=== PATIENT | female | born 1960 | race Caucasian/White ===

== ENCOUNTER 2018-06-13 16:00 | Outpatient (RCR) | payer OTHER, SELFPAY ==
--- NOTE | 2018-03-10 16:15 | PT.OTN ---
Current Diagnoses Pain in right shoulder (03/10/18) Transition note: On March 08, 2018 our therapy services consisting of Speech, Occupational, and Physical Therapy transitioned from the [employer] electronic documentation system to a new [employer] electronic documentation system.?? All documentation prior to March 08 can be found under [employer] saved data. From March 08 forward all medical record documentation will be in [employer] 6[facility]1.
--- NOTE | 2018-03-14 07:57 | PT.OTN ---
Current Diagnoses Pain in right shoulder (03/10/18) Physical Therapy Treatment Note PT-OP-A Visit Information Start: 03/10/18 17:10 Freq: Status: Active Protocol: Activity Type Activity Date Activity User E-Sign Co-Sign Detail Recorded Client Recorded Date Recorded By Document 03/10/18 17:11 EA [id number] 03/10/18 17:16 EA 03/10/18 17:11 Out-Patient Physical Therapy Visit Information [Visit Information] -Visit Type Treatment Note -Total Visit Minutes 55 PT-OP-C Subjective Start: 03/10/18 17:10 Freq: Status: Active Protocol: Activity Type Activity Date Activity User E-Sign Co-Sign Detail Recorded Client Recorded Date Recorded By Document 03/10/18 17:11 EA [id number] 03/10/18 17:16 EA 03/10/18 17:11 OP-PT Subjective [Patient Comments] -Patient Reported Progress Improving PT-OP-Q Treatments Start: 03/10/18 17:10 Freq: Status: Active Protocol: Activity Type Activity Date Activity User E-Sign Co-Sign Detail Recorded Client Recorded Date Recorded By Document 03/10/18 17:11 EA [id number] 03/10/18 17:16 EA 03/10/18 17:11 Cardio Equipment [Elliptical] -Duration (Minutes) 8 -Resistance 5 Gym Equipment [Cable Column (Body Solid)] Other- 2 -Details Lunge stance cable press -Resistance 10 lbs -Reps/Time 12 x 3 Other- 1 -Details Squat cable row Pain free range -Resistance 20-30lbs -Reps/Time 12 x 3 [Shuttle Recovery] Bilateral Squats -Resistance 3-6 cords -Shuttle Recovery Platform Stable -Reps/Time 15 x 6 [Therapeutic Ball] 1 -Exercise Details Supine lying DB trunk rotation -Reps/Duration 12 x 2 Therapeutic Exercises [Prone Exercises] 2 -Prone Exercise Name Yanelis pose to stretch towards left -Reps/Minutes 15 SH x 3 1 -Prone Exercise Name Quadro ped Unilat trunk/ shoulder in/out -Side bilateral -Reps/Minutes 15 x 3 [Sitting Exercises] 1 -Sitting Exercise Name Leg ext -Side bilateral -Resistance 5-8 lbs -Equipment Used AW -Reps/Minutes 15 x 3 -Comments pain free range [Standing Exercises] 2 -Standing Exercise Name Quads, hamstring and calfs flexibility stertch -Side bilateral -Reps/Minutes 15 SH x 2 1 -Standing Exercise Name Side step squat -Side bilateral -Comments Pain free range Manual Therapy Treatment [Soft Tissue Mobilization] 1 -Body Location Right scap borders, right paralumbars -Mobilization Type Myofascial Release Sustained Pressure -Intensity/Depth Moderate -Body Position Prone PT-OP-R Modalities Start: 03/10/18 17:10 Freq: Status: Active Protocol: Activity Type Activity Date Activity User E-Sign Co-Sign Detail Recorded Client Recorded Date Recorded By Document 03/10/18 17:11 EA [id number] 03/10/18 17:16 EA 03/10/18 17:11 Hot Pack/Cold Pack [Treatment] Cold Pack -Location both knees -Patient Position Supine -Patient Tolerance Good PT-OP-T Assessment and Plan Start: 03/10/18 17:10 Freq: Status: Active Protocol: Activity Type Activity Date Activity User E-Sign Co-Sign Detail Recorded Client Recorded Date Recorded By Document 03/10/18 17:11 AMANDA [id number] 03/10/18 17:16 EA 03/10/18 17:11 Physical Therapy Assessment [Goals] One -Impairment impaired half squat tolerance due to pain -LTG Duration Patient will exhibit 90 deg squat x 10 reps with no increase in pain [Progress Towards Goals] -Progress Towards Goals Slow Progress due to Activity Tolerance [Assessment Summary] -Assessment Patient is progressing slowly Physical Therapy Plan [Next Visit Focus/Plan] -Next Visit Plan Cont. with current plan
--- NOTE | 2018-03-14 10:01 | PT.OTN ---
Current Diagnoses Pain in right shoulder (03/14/18) Physical Therapy Treatment Note PT-OP-A Visit Information Start: 03/10/18 17:10 Freq: Status: Active Protocol: Activity Type Activity Date Activity User E-Sign Co-Sign Detail Recorded Client Recorded Date Recorded By Document 03/14/18 09:43 EA [id number] 03/14/18 09:59 EA 03/14/18 09:43 Out-Patient Physical Therapy Visit Information [Visit Information] -Visit Type Treatment Note -Total Visit Minutes 55 PT-OP-C Subjective Start: 03/10/18 17:10 Freq: Status: Active Protocol: Activity Type Activity Date Activity User E-Sign Co-Sign Detail Recorded Client Recorded Date Recorded By Document 03/14/18 09:43 EA [id number] 03/14/18 09:59 EA 03/14/18 09:43 OP-PT Subjective [Patient Comments] -Patient Comments Patient reports had a 2 days 4 hours tennis and feels shoulder and right low back is painful toaday; states right shoulder is getting better thouhg. PT-OP-Q Treatments Start: 03/10/18 17:10 Freq: Status: Active Protocol: Activity Type Activity Date Activity User E-Sign Co-Sign Detail Recorded Client Recorded Date Recorded By Document 03/14/18 09:43 EA [id number] 03/14/18 09:59 EA 03/14/18 09:43 Cardio Equipment [Elliptical] -Duration (Minutes) 6 -Resistance 5 Gym Equipment [Cable Column (Body Solid)] Other- 2 -Details Lunge stance cable press -Resistance 10 lbs -Reps/Time 12 x 3 Other- 1 -Details Squat cable row Pain free range -Resistance 20-30lbs -Reps/Time 12 x 3 [Shuttle Recovery] Bilateral Squats -Resistance 3-6 cords -Shuttle Recovery Platform Stable -Reps/Time 15 x 6 [Therapeutic Ball] 1 -Exercise Details Supine lying DB trunk rotation -Reps/Duration 12 x 2 Therapeutic Exercises [Prone Exercises] 2 -Prone Exercise Name Yanelis pose to stretch towards left -Reps/Minutes 15 SH x 3 1 -Prone Exercise Name Quadro ped Unilat trunk/ shoulder in/out -Side bilateral -Reps/Minutes 15 x 3 [Sitting Exercises] 1 -Sitting Exercise Name Leg ext -Side bilateral -Resistance 5-8 lbs -Equipment Used AW -Reps/Minutes 15 x 3 -Comments pain free range [Standing Exercises] 2 -Standing Exercise Name Quads, hamstring and calfs flexibility stertch -Side bilateral -Reps/Minutes 15 SH x 2 1 -Standing Exercise Name Side step squat -Side bilateral -Comments Pain free range Manual Therapy Treatment [Soft Tissue Mobilization] 1 -Body Location Right scap borders, right paralumbars -Mobilization Type Myofascial Release Sustained Pressure -Intensity/Depth Moderate -Body Position Prone PT-OP-R Modalities Start: 03/10/18 17:10 Freq: Status: Active Protocol: Activity Type Activity Date Activity User E-Sign Co-Sign Detail Recorded Client Recorded Date Recorded By Document 03/14/18 09:43 EA [id number] 03/14/18 09:59 EA 03/14/18 09:43 Electric Stimulation [Electric Stimulation] Interferential Current (IFC) -Body Location Paralumbars, parascapulars, R -Combined With Heat/Cold Hot Pack Hot Pack/Cold Pack [Treatment] Hot Pack -Location low back ans prascapulars -Treatment Duration (minutes) 15 Cold Pack -Location both knees -Patient Position Supine -Patient Tolerance Good PT-OP-T Assessment and Plan Start: 03/10/18 17:10 Freq: Status: Active Protocol: Activity Type Activity Date Activity User E-Sign Co-Sign Detail Recorded Client Recorded Date Recorded By Document 03/14/18 09:43 EA [id number] 03/14/18 09:59 EA 03/14/18 09:43 Physical Therapy Assessment [Goals] One -Impairment impaired half squat tolerance due to pain -LTG Duration Patient will exhibit 90 deg squat x 10 reps with no increase in pain [Progress Towards Goals] -Progress Towards Goals Slow Progress due to Activity Tolerance [Assessment Summary] -Assessment Patient tolerated treatment except with right shoulder/ trunk exercises w/ difficulty due to pain. Patient knees had less crepitus and pain. Physical Therapy Plan [Next Visit Focus/Plan] -Next Visit Plan Cont. with current plan
--- NOTE | 2018-03-16 17:41 | PT.OTN ---
Current Diagnoses Pain in right shoulder (03/16/18) Physical Therapy Treatment Note PT-OP-A Visit Information Start: 03/10/18 17:10 Freq: Status: Active Protocol: Document 03/16/18 17:35 EA (Rec: 03/16/18 17:40 EA [id number]) Out-Patient Physical Therapy Visit Information Visit Information Visit Type Treatment Note Total Visit Minutes 55 PT-OP-C Subjective Start: 03/10/18 17:10 Freq: Status: Active Protocol: Document 03/16/18 17:41 EA (Rec: 03/16/18 17:41 EA [id number]) OP-PT Subjective Patient Comments Patient Comments Played 2 hours tennis yesterday and no c/o knee pain during game. Patient Reported Progress Improving PT-OP-Q Treatments Start: 03/10/18 17:10 Freq: Status: Active Protocol: Document 03/16/18 17:35 EA (Rec: 03/16/18 17:40 EA [id number]) Gym Equipment Cable Column (Body Solid) Other- 2 Details Lunge stance cable press Resistance 10 lbs Reps/Time 12 x 3 Other- 1 Details Squat cable row Pain free range Resistance 20-30lbs Reps/Time 12 x 3 Shuttle Recovery Bilateral Squats Resistance 3-7 cords Shuttle Recovery Platform Stable Reps/Time 15 x 6 Therapeutic Exercises Prone Exercises 2 Prone Exercise Name Yanelis pose to stretch towards left Reps/Minutes 15 SH x 3 1 Prone Exercise Name Quadro ped Unilat trunk/ shoulder in/out Side bilateral Reps/Minutes 15 x 3 Sitting Exercises 1 Sitting Exercise Name Leg ext Side bilateral Resistance 5-10 lbs Equipment Used AW Reps/Minutes 15 x 3 Comments pain free range Standing Exercises 2 Standing Exercise Name Quads, hamstring and calfs flexibility stertch Side bilateral Reps/Minutes 15 SH x 2 1 Standing Exercise Name Side step squat Side bilateral Comments Pain free range PT-OP-R Modalities Start: 03/10/18 17:10 Freq: Status: Active Protocol: Document 03/16/18 17:35 EA (Rec: 03/16/18 17:40 EA [id number]) Electric Stimulation Electric Stimulation Interferential Current (IFC) Body Location Paralumbars, parascapulars, R Combined With Heat/Cold Hot Pack Hot Pack/Cold Pack Treatment Hot Pack Location low back ans prascapulars Treatment Duration (minutes) 15 Cold Pack Location both knees Patient Position Supine Patient Tolerance Good Ultrasound Therapy Treatment Right Lower Back Treatment Duration (minutes) 8 Frequency Setting (mHz) 1 Intensity Setting (w/cm2) 1.2 PT-OP-T Assessment and Plan Start: 03/10/18 17:10 Freq: Status: Active Protocol: Document 03/16/18 17:35 EA (Rec: 03/16/18 17:40 EA [id number]) Physical Therapy Assessment Assessment Summary Assessment Tolerated treatment well. No discomfort noted to both knees during exercises Physical Therapy Plan Next Visit Focus/Plan Next Visit Plan Advance as tolerated
--- NOTE | 2018-04-28 17:30 | PT.OPPOC ---
Current Diagnoses Pain in right shoulder (04/28/18) Pain in right knee (04/28/18) Provider Visit Care Team Role Provider Type Emerson Marin MD Family Provider Physician Primary Care Provider Specialty: [facility] Practice Address: [address] [place] [address], [id number] Email: [email or web address] [email or web address] Moore Attending Provider Advanced Practioner Clinician Specialty: [facility] Address: [address] [place] [address], [id number] Email: 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 LTG Duration 6 weeks Seven Impairment LE weakness Job Printer Apprentice Goal (LTG) 5/5 MMT bilaterally hip abduction, adduction, extension, flexion, IR, ER, and knee extension LTG Duration 6 weeks Six Impairment LE flexibility Job Printer Apprentice Goal (LTG) Full excursion of IT band and slight restriction or better of the rectus femoris bilaterally LTG Duration 6 weeks Five Impairment R shoulder ROM Job Printer Apprentice Goal (LTG) Apley's scratch test: R shoulder to T6 with IR combined. LTG Duration 6 weeks Four Impairment UE weakness Job Printer Apprentice Goal (LTG) 5/5 MMT without pain for shoulder flexion, IR, ER, abduction LTG Duration 6 weeks Three Impairment Impaired UE flexibility Fdc Goal (LTG) Full excursion of latissimus dorsi, levator, shoulder IRs, SCM, upper trapezius bilaterally LTG Duration 6 weeks Two Impairment Tenderness to palpation UE Fdc Goal (LTG) No tenderness to palpation in the UEs bilaterally LTG Duration 6 weeks One Impairment impaired half squat tolerance due to pain LTG Duration Patient will exhibit 90 deg squat x 10 reps with no increase in pain Progress Towards Goals Progress Towards Goals Progressing Toward Goals Slow Progress due to Activity Tolerance Progress Comments pt met Quick DASH disability score. Decreasing shoulder pain but still with low back pain with R shoulder elevation and with activity Assessment Summary Assessment Pt presents back to physical therapy (last seen Mar 16 2018) with improved bilateral knee and R shoulder pain, but high levels of pain in the lumbar region on the R side with shoulder elevation and with activities involved in RUE overhead motions (tennis). Pt' s low back pain likely due to impaired posture of the low back, as well as restrictions in lattissimus dorsi musculature, secondary to weakness of the R shoulder girdle musculature. Pt with decreased pain in low back with ultrasound therapy. Pt would greatly benefit from the continuation of skilled outpatient physical therapy to progress toward decreasing pain, improving strength and flexibility, and return to recreational activities (i.e. tennis) with minimal pain/ discomfort. Physical Therapy Plan Frequency and Duration Frequency of Treatment 2x/Week Duration of Treatment 6 weeks Plan of Care Start Date 04/28/18 Plan of Care End Date 06/09/18 Therapeutic Interventions Therapeutic Interventions Aquatic Therapy Home Exercise Program Joint Mobilizations Manual Therapy Neuromuscular Re-education Patient/Caregiver Education Self-Care/Home Management Soft Tissue Mobilization Taping Therapeutic Activities Therapeutic Exercises Modalities Cold Pack/Ice Massage Electric Stimulation Hot Packs Ultrasound Next Visit Focus/Plan Next Note Type Treatment Note Next Visit Plan ultrasound to R lumbar spine mm, 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 Plan of Care Dates Plan of Care Start Date 04/28/18 Plan of Care End Date 06/09/18 Please Sign and Return: I have reviewed this Plan of Care and certify that the skilled therapy services above are required to meet the patient?s needs. Physician Signature Date Printed Name and Credentials Clinical Instructor Signature Printed Name and Credentials
--- NOTE | 2018-04-28 17:30 | PT.OTN ---
Current Diagnoses Pain in right shoulder (04/28/18) Pain in right knee (04/28/18) Physical Therapy Treatment Note PT-OP-A Visit Information Start: 03/10/18 17:10 Freq: Status: Active Protocol: Document 04/28/18 17:30 RCC (Rec: 05/01/18 13:13 RCC [email or web address]) Out-Patient Physical Therapy Visit Information Visit Information Visit Type Treatment Note Visit Start Time 16:50 Visit Stop Time 17:30 Total Visit Minutes 40 Visit Number 20 Number of HOUSETRAILER SERVICER Visits 0 Evaluation Information Evaluation Date 12/14/17 PT-OP-B Current Condition Start: 03/10/18 17:10 Freq: Status: Active Protocol: Document 04/28/18 17:30 RCC (Rec: 05/01/18 13:13 RCC [email or web address]) Current Condition History of Current Condition Onset Date 12/01/17 Current Complaints R shoulder, B knee pain, low back pain R History of Current Condition Pt presented to physical therapy initially with R shoulder pain in December 2017 , with pain decreasing since initial injury but still painful. A new prescription for PT later in January of 2018 for bilateral knee pain. Pt also with c/o R sided low back pain with lifting of the R shoulder. Pt reporting that pain is limiting her ability to participate in recreational activities, including tennis. PT-OP-C Subjective Start: 03/10/18 17:10 Freq: Status: Active Protocol: Document 04/28/18 17:30 RCC (Rec: 05/01/18 13:13 RCC [email or web address]) OP-PT Subjective Patient Comments Patient Comments Pt reports her knees are improving, still some pain with stairs but able to play tennis without increased knee pain. Pt reports she still has pain with serving in her R shoulder, and increased pain into the R side of low back with overhead swinging in tennis. Pain 8/10 in low back, R shoulder 4/10. Patient Reported Progress Improving Patient Questionnaires Quick Dash- Upper Extremity Quick Dash UE Score 11.36 PT-OP-F Manual Assessment Start: 03/10/18 17:10 Freq: Status: Active Protocol: Document 04/28/18 17:30 RCC (Rec: 05/01/18 13:13 RCC [email or web address]) Manual Assessments Soft Tissue Assessment Soft Tissue Mobility Assessment Tenderness to palpation: R infraspinatus, levator, upper trap, latissimus dorsi, L3-5 lumbar paraspinals. PT-OP-M Strength Start: 03/10/18 17:10 Freq: Status: Active Protocol: Document 04/28/18 17:30 RCC (Rec: 05/01/18 13:13 [facility] [email or web address]) Shoulder Strength Shoulder Manual Muscle Testing Right Flexion 4+ Good+ Abduction (C5) 4+ Good+ External Rotation 4+ Good+ Internal Rotation 5 Normal Comments (+) pain R sided low back with resisted testing. Hip Strength Hip Manual Muscle Testing Left Flexion (L2) 5 Normal External Rotation 4+ Good+ Internal Rotation 4+ Good+ Right Flexion (L2) 4 Good External Rotation 3+ Fair+ Internal Rotation 4 Good Knee Strength Knee Manual Muscle Testing Right Flexion (S2) 4+ Good+ Extension (L3) 5 Normal Left Flexion (S2) 5 Normal Extension (L3) 5 Normal PT-OP-Q Treatments Start: 03/10/18 17:10 Freq: Status: Active Protocol: Document 04/28/18 17:30 RCC (Rec: 05/01/18 13:13 [facility] [email or web address]) Manual Therapy Treatment Soft Tissue Mobilization 3 Body Location R lumbar mm. L3-5 Mobilization Type Strumming Intensity/Depth Moderate Body Position Sidelying Comments 6 min 2 Body Location R infraspinatus, upper trap, lat Mobilization Type Myofascial Release Intensity/Depth Moderate Body Position Sitting Comments 8 min Other Other Manual Treatments UE & LE MMT, palpation 6 min Self-Care/Home Management Treatment Education Patient Education Body Mechanics Home Exercise Program Pain Management Posture Other Education discussed above topics in static and dynamic activities, stretching techniques for lat. PT-OP-R Modalities Start: 03/10/18 17:10 Freq: Status: Active Protocol: Document 04/28/18 17:30 RCC (Rec: 05/01/18 13:13 [facility] [email or web address]) Ultrasound Therapy Treatment Right Lower Back Treatment Duration (minutes) 8 Frequency Setting (mHz) 1 Intensity Setting (w/cm2) 1.2 PT-OP-T Assessment and Plan Start: 03/10/18 17:10 Freq: Status: Active Protocol: Document 04/28/18 17:30 RCC (Rec: 05/01/18 13:13 [facility] [email or web address]) Physical Therapy Assessment Impairments Impairments Activity Tolerance Pain Posture Soft Tissue Mobility Strength Goals Nine Impairment Quick DASH disability score Senior Economist Goal (LTG) Goal met: 11.36 (goal was <20) Eight Impairment R shoulder and low back pain Short Term Goal (STG) 3/10 R shoulder, 5/10 low back STG Duration 3 weeks Half-Way Goal (LTG) 2/10 or less R shoulder, 3/10 or less low back. LTG Duration 6 weeks Seven Impairment LE weakness Senior Economist Goal (LTG) 5/5 MMT bilaterally hip abduction, adduction, extension, flexion, IR, ER, and knee extension LTG Duration 6 weeks Six Impairment LE flexibility Half-Way Goal (LTG) Full excursion of IT band and slight restriction or better of the rectus femoris bilaterally LTG Duration 6 weeks Five Impairment R shoulder ROM Half-Way Goal (LTG) Apley's scratch test: R shoulder to T6 with IR combined. LTG Duration 6 weeks Four Impairment UE weakness Senior Economist Goal (LTG) 5/5 MMT without pain for shoulder flexion, IR, ER, abduction LTG Duration 6 weeks Three Impairment Impaired UE flexibility Half-Way Goal (LTG) Full excursion of latissimus dorsi, levator, shoulder IRs, SCM, upper trapezius bilaterally LTG Duration 6 weeks Two Impairment Tenderness to palpation UE Senior Economist Goal (LTG) No tenderness to palpation in the UEs bilaterally LTG Duration 6 weeks One Impairment impaired half squat tolerance due to pain LTG Duration Patient will exhibit 90 deg squat x 10 reps with no increase in pain Progress Towards Goals Progress Towards Goals Progressing Toward Goals Slow Progress due to Activity Tolerance Progress Comments pt met Quick DASH disability score. Decreasing shoulder pain but still with low back pain with R shoulder elevation and with activity Assessment Summary Assessment Pt presents back to physical therapy (last seen Mar 16 2018) with improved bilateral knee and R shoulder pain, but high levels of pain in the lumbar region on the R side with shoulder elevation and with activities involved in RUE overhead motions (tennis). Pt' s low back pain likely due to impaired posture of the low back, as well as restrictions in lattissimus dorsi musculature, secondary to weakness of the R shoulder girdle musculature. Pt with decreased pain in low back with ultrasound therapy. Pt would greatly benefit from the continuation of skilled outpatient physical therapy to progress toward decreasing pain, improving strength and flexibility, and return to recreational activities (i.e. tennis) with minimal pain/ discomfort. Physical Therapy Plan Frequency and Duration Frequency of Treatment 2x/Week Duration of Treatment 6 weeks Plan of Care Start Date 04/28/18 Plan of Care End Date 06/09/18 Therapeutic Interventions Therapeutic Interventions Aquatic Therapy Home Exercise Program Joint Mobilizations Manual Therapy Neuromuscular Re-education Patient/Caregiver Education Self-Care/Home Management Soft Tissue Mobilization Taping Therapeutic Activities Therapeutic Exercises Modalities Cold Pack/Ice Massage Electric Stimulation Hot Packs Ultrasound Next Visit Focus/Plan Next Note Type Treatment Note Next Visit Plan ultrasound to R lumbar spine mm, body component 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
--- NOTE | 2018-05-26 07:22 | PT.OTN ---
Current Diagnoses Pain in right shoulder (05/25/18) Physical Therapy Treatment Note PT-OP-A Visit Information Start: 03/10/18 17:10 Freq: Status: Active Protocol: Document 05/25/18 17:25 EA (Rec: 05/25/18 17:33 EA [id number]) Out-Patient Physical Therapy Visit Information Visit Information Visit Type Treatment Note Visit Start Time 16:00 Visit Stop Time 16:50 Total Visit Minutes 50 Visit Number 21 Number of CHARGING BOARD OPERATOR Visits 0 PT-OP-B Current Condition Start: 03/10/18 17:10 Freq: Status: Active Protocol: Document 04/28/18 17:30 RCC (Rec: 05/01/18 13:13 RCC [id number]) Current Condition History of Current Condition Onset Date 12/01/17 Current Complaints R shoulder, B knee pain, low back pain R History of Current Condition Pt presented to physical therapy initially with R shoulder pain in December 2017 , with pain decreasing since initial injury but still painful. A new prescription for PT later in January of 2018 for bilateral knee pain. Pt also with c/o R sided low back pain with lifting of the R shoulder. Pt reporting that pain is limiting her ability to participate in recreational activities, including tennis. PT-OP-C Subjective Start: 03/10/18 17:10 Freq: Status: Active Protocol: Document 05/25/18 17:25 EA (Rec: 05/25/18 17:33 EA [id number]) OP-PT Subjective Patient Comments Patient Comments Patient reports left hip is bothering her a lot and knees are doing great; states she will see otho surgeon next week for her knees Patient Reported Progress Improving PT-OP-F Manual Assessment Start: 03/10/18 17:10 Freq: Status: Active Protocol: Document 04/28/18 17:30 RCC (Rec: 05/01/18 13:13 RCC [email or web address]) Manual Assessments Soft Tissue Assessment Soft Tissue Mobility Assessment Tenderness to palpation: R infraspinatus, levator, upper trap, latissimus dorsi, L3-5 lumbar paraspinals. PT-OP-M Strength Start: 03/10/18 17:10 Freq: Status: Active Protocol: Document 04/28/18 17:30 RCC (Rec: 05/01/18 13:13 RCC [email or web address]) Shoulder Strength Shoulder Manual Muscle Testing Right Flexion 4+ Good+ Abduction (C5) 4+ Good+ External Rotation 4+ Good+ Internal Rotation 5 Normal Comments (+) pain R sided low back with resisted testing. Hip Strength Hip Manual Muscle Testing Left Flexion (L2) 5 Normal External Rotation 4+ Good+ Internal Rotation 4+ Good+ Right Flexion (L2) 4 Good External Rotation 3+ Fair+ Internal Rotation 4 Good Knee Strength Knee Manual Muscle Testing Right Flexion (S2) 4+ Good+ Extension (L3) 5 Normal Left Flexion (S2) 5 Normal Extension (L3) 5 Normal PT-OP-Q Treatments Start: 03/10/18 17:10 Freq: Status: Active Protocol: Document 05/25/18 17:25 EA (Rec: 05/25/18 17:33 EA [id number]) Cardio Equipment Elliptical Duration (Minutes) 6 Resistance 5 Gym Equipment Shuttle Recovery Bilateral Squats Resistance 3-5 cords Shuttle Recovery Platform Stable Reps/Time 15 x 6 Therapeutic Ball 1 Exercise Details Supine lying DB trunk rotation Reps/Duration 12 x 2 Therapeutic Exercises Prone Exercises 2 Prone Exercise Name Yanelis pose to stretch towards left Reps/Minutes 15 SH x 3 1 Prone Exercise Name Quadro ped Unilat trunk/ shoulder in/out Side bilateral Reps/Minutes 15 x 3 Sitting Exercises 1 Sitting Exercise Name Leg ext Side bilateral Resistance 5 lbs Equipment Used AW Reps/Minutes 15 x 3 Comments pain free range Standing Exercises 2 Standing Exercise Name Quads, hamstring and calfs flexibility stertch Side bilateral Reps/Minutes 15 SH x 2 Manual Therapy Treatment Soft Tissue Mobilization 3 Body Location R lumbar and hip flexors mm. L3-5 Mobilization Type Cross-Friction Sustained Pressure Intensity/Depth Moderate Body Position supine/prone Comments 15 mins PT-OP-R Modalities Start: 03/10/18 17:10 Freq: Status: Active Protocol: Document 05/25/18 17:25 EA (Rec: 05/25/18 17:33 EA [id number]) Electric Stimulation Electric Stimulation Interferential Current (IFC) Body Location right ant hip and ASIS Combined With Heat/Cold Cold Pack Hot Pack/Cold Pack Treatment Cold Pack Location both knees Patient Position Supine Patient Tolerance Good PT-OP-T Assessment and Plan Start: 03/10/18 17:10 Freq: Status: Active Protocol: Document 05/25/18 17:25 EA (Rec: 05/25/18 17:33 EA [id number]) Physical Therapy Assessment Assessment Summary Assessment Tolerated treatment well; exhibit ant left hip flexor strain. educated with pre- cautions and HEP. Physical Therapy Plan Next Visit Focus/Plan Next Note Type Treatment Note Next Visit Plan cont. with current program.
--- NOTE | 2018-05-31 13:55 | PT.OTN ---
Current Diagnoses Pain in right shoulder (05/31/18) Physical Therapy Treatment Note PT-OP-A Visit Information Start: 03/10/18 17:10 Freq: Status: Active Protocol: Document 05/31/18 10:30 EA (Rec: 05/31/18 13:54 EA [id number]) Out-Patient Physical Therapy Visit Information Visit Information Visit Start Time 08:15 Visit Stop Time 09:00 Total Visit Minutes 50 Visit Number 22 Number of DISTRICT OPERATIONS MANAGER Visits 0 PT-OP-B Current Condition Start: 03/10/18 17:10 Freq: Status: Active Protocol: Document 04/28/18 17:30 RCC (Rec: 05/01/18 13:13 RCC [email or web address]) Current Condition History of Current Condition Onset Date 12/01/17 Current Complaints R shoulder, B knee pain, low back pain R History of Current Condition Pt presented to physical therapy initially with R shoulder pain in December 2017 , with pain decreasing since initial injury but still painful. A new prescription for PT later in January of 2018 for bilateral knee pain. Pt also with c/o R sided low back pain with lifting of the R shoulder. Pt reporting that pain is limiting her ability to participate in recreational activities, including tennis. PT-OP-C Subjective Start: 03/10/18 17:10 Freq: Status: Active Protocol: Document 05/31/18 10:30 EA (Rec: 05/31/18 13:54 EA [id number]) OP-PT Subjective Patient Comments Patient Comments Pt reports right low back is quite hurting in the past few days after playing tennis; states complaint with pre-and post game exercises. PT-OP-F Manual Assessment Start: 03/10/18 17:10 Freq: Status: Active Protocol: Document 04/28/18 17:30 RCC (Rec: 05/01/18 13:13 RCC [email or web address]) Manual Assessments Soft Tissue Assessment Soft Tissue Mobility Assessment Tenderness to palpation: R infraspinatus, levator, upper trap, latissimus dorsi, L3-5 lumbar paraspinals. PT-OP-M Strength Start: 03/10/18 17:10 Freq: Status: Active Protocol: Document 04/28/18 17:30 RCC (Rec: 05/01/18 13:13 RCC [email or web address]) Shoulder Strength Shoulder Manual Muscle Testing Right Flexion 4+ Good+ Abduction (C5) 4+ Good+ External Rotation 4+ Good+ Internal Rotation 5 Normal Comments (+) pain R sided low back with resisted testing. Hip Strength Hip Manual Muscle Testing Left Flexion (L2) 5 Normal External Rotation 4+ Good+ Internal Rotation 4+ Good+ Right Flexion (L2) 4 Good External Rotation 3+ Fair+ Internal Rotation 4 Good Knee Strength Knee Manual Muscle Testing Right Flexion (S2) 4+ Good+ Extension (L3) 5 Normal Left Flexion (S2) 5 Normal Extension (L3) 5 Normal PT-OP-Q Treatments Start: 03/10/18 17:10 Freq: Status: Active Protocol: Document 05/31/18 10:30 EA (Rec: 05/31/18 13:54 EA [id number]) Cardio Equipment Elliptical Duration (Minutes) 6 Resistance 5 Gym Equipment Shuttle Recovery Bilateral Squats Resistance 3-5 cords Shuttle Recovery Platform Stable Reps/Time 15 x 6 Therapeutic Ball 1 Exercise Details Supine lying DB trunk rotation Reps/Duration 12 x 2 Therapeutic Exercises Prone Exercises 3 Prone Exercise Name Camel and cat Reps/Minutes x 5 reps x 2 sets x 5 SH in cats position 2 Prone Exercise Name Yanelis pose to stretch towards left Reps/Minutes 15 SH x 3 1 Prone Exercise Name Quadro ped Unilat trunk/ shoulder in/out Side bilateral Reps/Minutes 15 x 3 Sitting Exercises 1 Sitting Exercise Name Leg ext Side bilateral Resistance 5-12.5 lbs Equipment Used AW Reps/Minutes 15 x 3 Comments pain free range Standing Exercises 2 Standing Exercise Name Quads, hamstring and calfs flexibility stertch Side bilateral Reps/Minutes 15 SH x 2 Manual Therapy Treatment Soft Tissue Mobilization 3 Body Location R parlumbars Mobilization Type Cross-Friction Sustained Pressure Intensity/Depth Moderate Body Position supine/prone Comments 15 mins PT-OP-R Modalities Start: 03/10/18 17:10 Freq: Status: Active Protocol: Document 05/31/18 10:30 EA (Rec: 05/31/18 13:54 EA [id number]) Electric Stimulation Electric Stimulation Interferential Current (IFC) Body Location right ant hip and ASIS Combined With Heat/Cold Cold Pack Ultrasound Therapy Treatment Right Lower Back Treatment Duration (minutes) 5 Frequency Setting (mHz) 1 Intensity Setting (w/cm2) 1.5 PT-OP-T Assessment and Plan Start: 03/10/18 17:10 Freq: Status: Active Protocol: Document 05/31/18 10:30 EA (Rec: 05/31/18 13:54 EA [id number]) Physical Therapy Assessment Assessment Summary Assessment Tolerated treatment well with decreased back stiffness after treatment. Physical Therapy Plan Next Visit Focus/Plan Next Note Type Treatment Note Next Visit Plan cont. with current program.
--- NOTE | 2018-06-23 15:51 | PT.OTN ---
Current Diagnoses Pain in right shoulder (06/13/18) Physical Therapy Treatment Note PT-OP-A Visit Information Start: 03/10/18 17:10 Freq: Status: Active Protocol: Document 06/13/18 17:00 EA (Rec: 06/14/18 07:25 EA [id number]) Out-Patient Physical Therapy Visit Information Visit Information Visit Type Treatment Note Visit Note Re-evaluation performed to this date. Visit Start Time 16:00 Visit Stop Time 16:40 Total Visit Minutes 40 Visit Number 23 PT-OP-B Current Condition Start: 03/10/18 17:10 Freq: Status: Active Protocol: Document 06/13/18 17:20 EA (Rec: 06/23/18 15:28 EA [id number]) Current Condition History of Current Condition Onset Date 12/01/17 Current Complaints R shoulder, B knee pain, low back pain R History of Current Condition Pt presented to physical therapy initially with R shoulder pain in December 2017 , with pain decreasing since initial injury but still painful. A new prescription for PT later in January of 2018 for bilateral knee pain. Pt also with c/o R sided low back pain with lifting of the R shoulder. Pt reporting that pain is limiting her ability to participate in recreational activities, including tennis. PT-OP-C Subjective Start: 03/10/18 17:10 Freq: Status: Active Protocol: Document 06/13/18 17:00 EA (Rec: 06/14/18 07:25 EA [id number]) OP-PT Subjective Patient Comments Patient Comments Patient reports that she has been consistent with her home exercises program; states low back pain is not bothering much and cold pack is helping it. Patient states knees feels improving as well but she still willing to progress more . Patient Reported Progress Improving Patient Questionnaires Lower Extremity Functional Scale LEFS Impairment 20 to 39% Impaired (Score 48- 62) PT-OP-F Manual Assessment Start: 03/10/18 17:10 Freq: Status: Active Protocol: Document 06/13/18 17:20 EA (Rec: 06/23/18 15:28 EA [id number]) Manual Assessments Soft Tissue Assessment Soft Tissue Mobility Assessment Slight tenderness to palpation : R infraspinatus, levator, upper trap, latissimus dorsi, L3-5 lumbar paraspinals. Joint Mobility Assessment Joint Mobility Assessment Crepitus to both patellofemoral joint PT-OP-J Posture/Palpation/Skin Start: 03/10/18 17:10 Freq: Status: Active Protocol: Document 06/13/18 17:20 EA (Rec: 06/23/18 15:36 EA [id number]) Posture Evaluation Position Standing L-Spine Posture Increased Lordosis Patellar Posture (L) Laterally Tilted (R) Laterally Tilted Foot Arch (L) Low Arch (R) Low Arch Palpation Assessment Location One Palpation Location Right paralumbars Palpation Findings Soft Tissue Tightness Tenderness PT-OP-K Range of Motion Start: 03/10/18 17:10 Freq: Status: Active Protocol: Document 06/13/18 17:20 EA (Rec: 06/23/18 15:30 EA [id number]) Lumbar Spine Range of Motion Lumbar Spine Active Testing Position Sitting Flexion 45 Extension 40 Rotation Left 35 Rotation Right 40 Lateral Flexion Left 25 Lateral Flexion Right 35 ROM Limitations Soft Tissue Tightness Pain Knee Goniometric Range of Motion Knee Measured in Degrees Left Knee ROM WFL Yes Right Knee ROM WFL Yes PT-OP-L Special Tests Start: 03/10/18 17:10 Freq: Status: Active Protocol: Document 06/13/18 15:20 EA (Rec: 06/23/18 15:34 EA [id number]) Special Tests Lumbar Spine Special Tests Other- 1 Test Results Sensitive Comments Lumbar facet's joint test's increase pain. Knee Special Tests Michael's Sign Test Results positive both knees Comments Suggest patellofemoral joint affectation. PT-OP-M Strength Start: 03/10/18 17:10 Freq: Status: Active Protocol: Document 06/13/18 17:00 EA (Rec: 06/23/18 14:31 EA [id number]) Shoulder Strength Shoulder Manual Muscle Testing Right Flexion 4+ Good+ Abduction (C5) 4+ Good+ External Rotation 4+ Good+ Internal Rotation 5 Normal Comments (+) pain R sided low back with resisted testing. PT-OP-Q Treatments Start: 03/10/18 17:10 Freq: Status: Active Protocol: Document 06/13/18 17:00 EA (Rec: 06/23/18 14:31 EA [id number]) Cardio Equipment Elliptical Duration (Minutes) 6 Resistance 5 Gym Equipment Shuttle Recovery Bilateral Squats Resistance 3-6 cords Shuttle Recovery Platform Stable Reps/Time 15 x 6 Therapeutic Exercises Prone Exercises 3 Prone Exercise Name Camel and cat Reps/Minutes x 5 reps x 2 sets x 5 SH in cats position 2 Prone Exercise Name Yanelis pose to stretch towards left Reps/Minutes 15 SH x 3 1 Prone Exercise Name Quadro ped Unilat trunk/ shoulder in/out Side bilateral Reps/Minutes 15 x 3 Sitting Exercises 1 Sitting Exercise Name Leg ext Side bilateral Resistance 5-12.5 lbs Equipment Used AW Reps/Minutes 15 x 3 Comments home program Standing Exercises 2 Standing Exercise Name Quads, hamstring and calfs flexibility stertch Side bilateral Reps/Minutes 15 SH x 2 Comments home program 1 Standing Exercise Name Side step squat Side bilateral Comments home program Self-Care/Home Management Treatment Education Patient Education Body Mechanics Home Exercise Program Pain Management Posture Other Education discussed above topics in static and dynamic activities, stretching techniques for lat. PT-OP-R Modalities Start: 03/10/18 17:10 Freq: Status: Active Protocol: Document 06/13/18 17:20 EA (Rec: 06/23/18 15:28 EA [id number]) Hot Pack/Cold Pack Treatment Hot Pack Location low back ans prascapulars Treatment Duration (minutes) 15 Cold Pack Location both knees Patient Position Supine Patient Tolerance Good Ultrasound Therapy Treatment Right Lower Back Treatment Duration (minutes) 5 Frequency Setting (mHz) 1 Intensity Setting (w/cm2) 1.5 PT-OP-T Assessment and Plan Start: 03/10/18 17:10 Freq: Status: Active Protocol: Document 06/13/18 17:00 EA (Rec: 06/23/18 14:31 EA [id number]) Physical Therapy Assessment Goals Ten Impairment Unable to perform Steady full lunges Nursing Home Goal (LTG) Patient will perform full lunges with single hand support. LTG Duration 6 wks Nine Impairment Quick DASH disability score Digital Controls Technical Officer Goal (LTG) Goal met: 11.36 (goal was <20) Eight Impairment low back pain rated 5/10 STG Duration 3 weeks Nursing Home Goal (LTG) 2/10 or less low back. LTG Duration goal met Seven Impairment LE weakness Digital Controls Technical Officer Goal (LTG) 5/5 MMT bilaterally hip abduction, adduction, extension, flexion, IR, ER, and knee extension LTG Duration 6 weeks Six Impairment LE flexibility Nursing Home Goal (LTG) Full excursion of IT band and slight restriction or better of the rectus femoris bilaterally LTG Duration 6 weeks One Impairment impaired half squat tolerance due to pain LTG Duration Patient will exhibit 90 deg squat x 10 reps with no increase in pain Progress Towards Goals Progress Towards Goals Progressing Toward Goals Slow Progress due to Activity Tolerance Progress Comments Low back pain is gradually improving in terms of frequency Assessment Summary Assessment Patient was only seen 3 times since the last re-evaluation. Patient has been compliant with HEP and she has been consistent playing tennis and aware with body mechanics and pre-cautions. Overall patient is slowly progressing in terms of shoulder and low back pain . 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 Patient has a tendency to overworked upper body and lower back during tennis. At this point, i am inforcing to strengthening both LE's to prevent the recurrence of low back and shoulder pain. In my opinion patient will cont . to benefit with skilled PT to address the aforementioned issues. Physical Therapy Plan Frequency and Duration Frequency of Treatment 1x/Week Plan of Care Start Date 06/13/18 Plan of Care End Date 07/25/18 Therapeutic Interventions Therapeutic Interventions Home Exercise Program Joint Mobilizations Manual Therapy Self-Care/Home Management Soft Tissue Mobilization Therapeutic Exercises Next Visit Focus/Plan Next Note Type Treatment Note Next Visit Plan LE's strengthening.
--- NOTE | 2018-06-23 15:52 | PT.OPPOC ---
Current Diagnoses Pain in right shoulder (06/13/18) Provider Visit Care Team Role Provider Type Emerson Marin MD Family Provider Physician Primary Care Provider Specialty: [facility] Address: [address] [place] [address], [id number] Email: [email or web address] MURALI Moore Attending Provider Advanced Laborer/Key Man Specialty: [facility] Address: [address] [place] [address], [id number] Email: [email or web address] Plan Of Care PT-OP-T Assessment and Plan Start: 03/10/18 17:10 Freq: Status: Active Protocol: Document 06/13/18 17:00 EA (Rec: 06/23/18 14:31 EA [id number]) Physical Therapy Assessment Goals Ten Impairment Unable to perform Steady full lunges Stewardess Supervisor Goal (LTG) Patient will perform full lunges with single hand support. LTG Duration 6 wks Nine Impairment Quick DASH disability score Detention Goal (LTG) Goal met: 11.36 (goal was <20) Eight Impairment low back pain rated 5/10 STG Duration 3 weeks Stewardess Supervisor Goal (LTG) 2/10 or less low back. LTG Duration goal met Seven Impairment LE weakness Detention Goal (LTG) 5/5 MMT bilaterally hip abduction, adduction, extension, flexion, IR, ER, and knee extension LTG Duration 6 weeks Six Impairment LE flexibility Detention Goal (LTG) Full excursion of IT band and slight restriction or better of the rectus femoris bilaterally LTG Duration 6 weeks One Impairment impaired half squat tolerance due to pain LTG Duration Patient will exhibit 90 deg squat x 10 reps with no increase in pain Progress Towards Goals Progress Towards Goals Progressing Toward Goals Slow Progress due to Activity Tolerance Progress Comments Low back pain is gradually improving in terms of frequency Assessment Summary Assessment Patient was only seen 3 times since the last re-evaluation. Patient has been compliant with HEP and she has been consistent playing tennis and aware with body mechanics and pre-cautions. Overall patient is slowly progressing in terms of shoulder and low back pain . 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 Patient has a tendency to overworked upper body and lower back during tennis. At this point, i am in forcing to strengthening both LE's to prevent the recurrence of low back and shoulder pain. In my opinion patient will cont . to benefit with skilled PT to address the aforementioned issues. Physical Therapy Plan Frequency and Duration Frequency of Treatment 1x/Week Plan of Care Start Date 06/13/18 Plan of Care End Date 07/25/18 Therapeutic Interventions Therapeutic Interventions Home Exercise Program Joint Mobilizations Manual Therapy Self-Care/Home Management Soft Tissue Mobilization Therapeutic Exercises Next Visit Focus/Plan Next Note Type Treatment Note Next Visit Plan LE's strengthening. Plan of Care Dates Plan of Care Start Date 06/13/18 Plan of Care End Date 07/25/18 Please Sign and Return: I have reviewed this Plan of Care and certify that the skilled therapy services above are required to meet the patient?s needs. Physician Signature Date Printed Name and Credentials Clinical Instructor Signature Printed Name and Credentials
--- NOTE | 2019-05-30 12:52 | PT.OPDS ---
Current Diagnoses Pain in right shoulder (06/13/18) Provider Visit Care Team Role Provider Type Emerson Marin MD Family Provider Physician Primary Care Provider Specialty: Family Practice Address: [address] [place] [address], [id number] Email: [email or web address] Attending Provider Advanced Second Facing Baster Specialty: [facility] Practice Address: [address] [place] [address], [place], [address] Email: [email or web address] Visit Number Visit Number 23 Discharge Summary PT-OP-B Current Condition Start: 03/10/18 17:10 Freq: Status: Active Protocol: Document 06/13/18 17:20 EA (Rec: 06/23/18 15:28 EA [id number]) Current Condition History of Current Condition Onset Date 12/01/17 Current Complaints R shoulder, B knee pain, low back pain R History of Current Condition Pt presented to physical therapy initially with R shoulder pain in December 2017 , with pain decreasing since initial injury but still painful. A new prescription for PT later in January of 2018 for bilateral knee pain. Pt also with c/o R sided low back pain with lifting of the R shoulder. Pt reporting that pain is limiting her ability to participate in recreational activities, including tennis. PT-OP-C Subjective Start: 03/10/18 17:10 Freq: Status: Active Protocol: Document 05/30/19 12:50 EA (Rec: 05/30/19 12:52 EA [id number]) OP-PT Subjective Patient Comments Patient Comments Phone made and requested to keep file open on 11/09/18. She mentioned that she will call back after weeks to comeback to PT. She is aware that she required doctor's referral is she wishes to comeback. PT-OP-F Manual Assessment Start: 03/10/18 17:10 Freq: Status: Active Protocol: Document 06/13/18 17:20 EA (Rec: 06/23/18 15:28 EA [id number]) Manual Assessments Soft Tissue Assessment Soft Tissue Mobility Assessment Slight tenderness to palpation : R infraspinatus, levator, upper trap, latissimus dorsi, L3-5 lumbar paraspinals. Joint Mobility Assessment Joint Mobility Assessment Crepitus to both patellofemoral joint PT-OP-J Posture/Palpation/Skin Start: 03/10/18 17:10 Freq: Status: Active Protocol: Document 06/13/18 17:20 EA (Rec: 06/23/18 15:36 EA [id number]) Posture Evaluation Position Standing L-Spine Posture Increased Lordosis Patellar Posture (L) Laterally Tilted (R) Laterally Tilted Foot Arch (L) Low Arch (R) Low Arch Palpation Assessment Location One Palpation Location Right paralumbars Palpation Findings Soft Tissue Tightness Tenderness PT-OP-K Range of Motion Start: 03/10/18 17:10 Freq: Status: Active Protocol: Document 06/13/18 17:20 EA (Rec: 06/23/18 15:30 EA [id number]) Lumbar Spine Range of Motion Lumbar Spine Active Testing Position Sitting Flexion 45 Extension 40 Rotation Left 35 Rotation Right 40 Lateral Flexion Left 25 Lateral Flexion Right 35 ROM Limitations Soft Tissue Tightness Pain Knee Goniometric Range of Motion Knee Left Knee ROM WFL Yes Right Knee ROM WFL Yes PT-OP-L Special Tests Start: 03/10/18 17:10 Freq: Status: Active Protocol: Document 06/13/18 15:20 EA (Rec: 06/23/18 15:34 EA [id number]) Special Tests Lumbar Spine Special Tests Other- 1 Test Results Sensitive Comments Lumbar facet's joint test's increase pain. Knee Special Tests Michael's Sign Test Results positive both knees Comments Suggest patellofemoral joint affectation. PT-OP-M Strength Start: 03/10/18 17:10 Freq: Status: Active Protocol: Document 06/13/18 17:00 EA (Rec: 06/23/18 14:31 EA [id number]) Shoulder Strength Shoulder Manual Muscle Testing Right Flexion 4+ Good+ Abduction (C5) 4+ Good+ External Rotation 4+ Good+ Internal Rotation 5 Normal Comments (+) pain R sided low back with resisted testing. PT-OP-T Assessment and Plan Start: 03/10/18 17:10 Freq: Status: Active Protocol: Document 05/30/19 12:50 EA (Rec: 05/30/19 12:52 EA [id number]) Physical Therapy Assessment Assessment Summary Assessment Patient is discharge to PT today after no call received since six month ago up to today's date. Physical Therapy Plan Discharge Physical Therapy Discharge Reasons No Longer Attending PT
== END 2019-06-01 14:00 | disposition home or self-care (01) ==
LOC: PHYS 16:00
PROVIDERS: Family Provider Family Medicine; PCP Family Medicine; Visit Provider Internal Medicine
DX: M25.511 Pain in right shoulder (principal)
CPT/HCPCS: 97010; 97014; 97035; 97110; 97140; 97535; G0283

== ENCOUNTER → 2018-08-03 08:03 | Outpatient (CLI) | payer OTHER, SELFPAY ==
[2018-08-03 09:02] LABS: Add Manual Diff / Slide Review NO; Basophils Percent Auto 0.7 % (0-2); Eosinophils Percent Auto 5.9 % (2-4); Hematocrit 40.7 % (36-46); Hemoglobin 14.1 g/dL (12.0-16.0); Lymphocytes Percent Auto 35.9 % (25-40); Mean Corpuscular HGB Conc 34.6 % (30-36); Mean Corpuscular Hemoglobin 28.5 PG (26-34); Mean Corpuscular Volume 82.3 fL (80-100); Monocytes Percent Auto 8.3 % (3-14); Neutrophils Absolute Auto 3600 /uL (3000-5900); Neutrophils Percent Auto 49.2 % (50-75); Platelet Count 274 X10^3/uL (150-400); Red Blood Cell Count 4.94 X10^6/uL (4.0-5.2); Red Cell Distribution Width 13.9 % (11.6-14.8); White Blood Cell Count 7.3 X10^3/uL (4.5-11.0)
[2018-08-03 09:37] LABS: Alanine Aminotransferase 22 IU/L (9-52); Albumin 4.3 g/dL (3.5-5.0); Albumin Globulin Ratio 1.7 (1.0-2.8); Alkaline Phosphatase 57 U/L (38-126); Aspartate Aminotransferase 21 IU/L (14-36); BUN Creatinine Ratio 28.6 (6-22); Bilirubin Total 0.6 mg/dL (0.2-1.3); Blood Urea Nitrogen 20 mg/dL (7-17); Calcium 9.2 mg/dL (8.4-10.2); Carbon Dioxide 30 mmol/L (22-32); Chloride 104 mmol/L (98-107); Cholesterol 225 mg/dL (140-199); Estimated Glomerular Filt Rate > 60.0 mL/min (>60); Globulin 2.6 g/dL (1.7-4.1); Glucose 94 mg/dL (70-100); HDL Cholesterol 99 mg/dL (40-60); HEMOLYSIS < 15 (0-50); LDL Cholesterol Calculated 115 mg/dL (<100); Potassium 4.1 mmol/L (3.4-5.1); Sodium 143 mmol/L (137-145); Total Protein 6.9 g/dL (6.3-8.2); Triglycerides 53 mg/dL (35-150)
[2018-08-03 09:50] LABS: Free T3, Triiodothyronine Free 3.34 pg/mL (2.77-5.27); Free T4, Direct Thyroxine 0.75 ng/dL (0.78-2.19)
== END ==
PROVIDERS: PCP Family Medicine; Visit Provider Family Medicine
DX: R20.2 Paresthesia of skin (principal)
CPT/HCPCS: 36415; 80053; 80061; 84439; 84443; 84481; 85025

== ENCOUNTER → 2019-01-12 07:45 | Outpatient (CLI) | payer OTHER, SELFPAY ==
[2019-01-12 09:16] LABS: Thyroid Stimulating Hormone 6.34 uIU/mL (0.47-4.68)
== END ==
PROVIDERS: PCP Family Medicine; Visit Provider Family Medicine
DX: E03.9 Hypothyroidism, unspecified (principal)
CPT/HCPCS: 36415; 84443

== ENCOUNTER → 2019-05-05 08:13 | Outpatient (CLI) | payer OTHER, SELFPAY | PROVIDERS: PCP Family Medicine; Visit Provider Family Medicine | DX: E03.9 Hypothyroidism, unspecified (principal) | CPT/HCPCS: 36415; 84443 ==

== ENCOUNTER → 2019-06-13 08:16 | Outpatient (CLI) | payer OTHER, SELFPAY ==
[2019-06-13 10:13] LABS: Thyroid Stimulating Hormone < 0.02 uIU/mL (0.47-4.68)
== END ==
PROVIDERS: PCP Family Medicine; Visit Provider Family Medicine
DX: R79.89 Other specified abnormal findings of blood chemistry (principal)
CPT/HCPCS: 36415; 84443

== ENCOUNTER → 2019-10-26 07:15 | Outpatient (CLI) | payer OTHER, SELFPAY ==
[2019-10-26 09:52] LABS: Thyroid Stimulating Hormone 0.17 uIU/mL (0.47-4.68)
== END ==
PROVIDERS: PCP Family Medicine; Visit Provider Family Medicine
DX: R79.89 Other specified abnormal findings of blood chemistry (principal)
CPT/HCPCS: 36415; 84443

== ENCOUNTER → 2020-01-08 07:59 | Outpatient (CLI) | payer OTHER, SELFPAY ==
[2020-01-08 08:44] LABS: Cholesterol 228 mg/dL (140-199); HDL Cholesterol 109 mg/dL (40-60); LDL Cholesterol Calculated 110 mg/dL (<100); Triglycerides 46 mg/dL (35-150)
== END ==
PROVIDERS: PCP Family Medicine; Referring Provider Family Medicine; Visit Provider Family Medicine
DX: Z13.220 Encounter for screening for lipoid disorders (principal); Z13.6 Encounter for screening for cardiovascular disorders; E03.9 Hypothyroidism, unspecified
CPT/HCPCS: 36415; 80061; 84443

== ENCOUNTER → 2020-02-23 07:54 | Outpatient (CLI) | payer OTHER, SELFPAY ==
[2020-02-23 10:23] LABS: Thyroid Stimulating Hormone 2.56 uIU/mL (0.47-4.68)
== END ==
PROVIDERS: PCP Family Medicine; Referring Provider Family Medicine; Visit Provider Family Medicine
DX: E03.9 Hypothyroidism, unspecified (principal)
CPT/HCPCS: 36415; 84443

== ENCOUNTER → 2020-07-19 07:40 | Outpatient (CLI) | payer OTHER, SELFPAY ==
[2020-07-19 08:33] LABS: Add Manual Diff / Slide Review NO; Basophils Absolute Auto 100 /uL (0-100); Basophils Percent Auto 1.1 % (0-2); Eosinophils Absolute Auto 300 /uL (0-450); Eosinophils Percent Auto 4.4 % (2-4); Hematocrit 39.9 % (36-46); Hemoglobin 13.6 g/dL (12.0-16.0); Lymphocytes Absolute Auto 2700 /uL (1100-4500); Lymphocytes Percent Auto 42.6 % (25-40); Mean Corpuscular HGB Conc 34.1 % (30-36); Mean Corpuscular Hemoglobin 28.3 PG (26-34); Mean Corpuscular Volume 82.9 fL (80-100); Monocytes Absolute Auto 500 /uL (0-900); Monocytes Percent Auto 8.5 % (3-14); Neutrophils Absolute Auto 2700 /uL (1500-7000); Neutrophils Percent Auto 43.4 % (50-75); Platelet Count 261 X10^3/uL (150-400); Red Blood Cell Count 4.81 X10^6/uL (4.0-5.2); Red Cell Distribution Width 13.7 % (11.6-14.8); White Blood Cell Count 6.3 X10^3/uL (4.5-11.0)
[2020-07-19 09:03] LABS: Alanine Aminotransferase 17 IU/L (<35); Albumin 4.1 g/dL (3.5-5.0); Albumin Globulin Ratio 1.6 (1.0-2.8); Alkaline Phosphatase 58 U/L (38-126); Aspartate Aminotransferase 23 IU/L (14-36); BUN Creatinine Ratio 20.9 (6-22); Bilirubin Total 0.6 mg/dL (0.2-1.3); Blood Urea Nitrogen 14 mg/dL (7-17); Calcium 9.3 mg/dL (8.4-10.2); Carbon Dioxide 28 mmol/L (22-32); Chloride 105 mmol/L (98-107); Cholesterol 226 mg/dL (140-199); Estimated Glomerular Filt Rate > 60.0 mL/min (>60); Globulin 2.6 g/dL (1.7-4.1); Glucose 96 mg/dL (70-100); HDL Cholesterol 103 mg/dL (40-60); HEMOLYSIS < 15 (0-50); LDL Cholesterol Calculated 109 mg/dL (<100); Potassium 4.3 mmol/L (3.4-5.1); Sodium 138 mmol/L (137-145); Total Protein 6.7 g/dL (6.3-8.2); Triglycerides 72 mg/dL (35-150)
[2020-07-19 09:33] LABS: Thyroid Stimulating Hormone 1.04 uIU/mL (0.47-4.68)
== END ==
PROVIDERS: PCP Family Medicine; Referring Provider Family Medicine; Visit Provider Family Medicine
DX: E78.5 Hyperlipidemia, unspecified (principal); E03.9 Hypothyroidism, unspecified
CPT/HCPCS: 36415; 80053; 80061; 84443; 85025

== ENCOUNTER → 2021-01-28 17:49 | Outpatient (CLI) | payer OTHER, SELFPAY ==
--- NOTE | 2021-01-28 17:52 | DI.RAD.S_ITS ---
PROCEDURE: XR HIP W PEL IF DONE LT 2V INDICATIONS: hip pain TECHNIQUE: AP pelvis with lateral view(s) of the left hip(s). COMPARISON: None. FINDINGS: Bones: No fractures or dislocation but there is a subchondral cyst at the lateral aspect of the acetabulum, measuring up to 2.5 cm craniocaudad and 1.9 cm transverse. There is also minimal right and mild left hip joint space narrowing.. Pelvic ring appears intact. No suspicious bony lesions. Soft tissues: The visualized bowel gas pattern is normal. No suspicious soft tissue calcifications. IMPRESSION: Asymmetric left greater than right degenerative change at the hips, with a left-sided prominent subchondral cyst as discussed above measuring approximately 1.9 x 2.5 cm above the articular surface of the acetabulum laterally. Dictated by: Ahsan Burton M.D. on 01/29/2021 at 8:41 Approved by: Ahsan Burton M.D. on 01/29/2021 at 8:46
== END ==
PROVIDERS: PCP Family Medicine; Referring Provider Family Medicine; Visit Provider Family Medicine
DX: M25.552 Pain in left hip (principal)
CPT/HCPCS: 73502

== ENCOUNTER → 2021-04-02 09:04 | Outpatient (CLI) | payer OTHER, SELFPAY ==
[2021-04-02 10:13] LABS: COVID19 -Nasal RAPID Negative (Negative)
== END ==
PROVIDERS: PCP Family Medicine; Visit Provider Surgery
DX: Z01.812 Encounter for preprocedural laboratory examination (principal); Z20.822 Contact with and (suspected) exposure to COVID-19
CPT/HCPCS: 87635; C9803

== ENCOUNTER 2021-04-03 10:30 | Day surgery (SDC) | payer OTHER, SELFPAY ==
[2021-04-03] VITALS (8 sets, daily range): BP systolic 111–128; BP diastolic 56–85; PULSE 55–76; RESP 12–16; TEMP 36.6–37.2; O2SAT 96–100; BMI 27.4
--- NOTE | 2021-04-03 | PATH_ITS ---
[facility] Accession Number: [id number] . 01 Material submitted: . colon - CECAL POLYP . 01 Clinical history: . SDC . 02 Diagnosis: Cecal Polyp, Biopsy: Tubular adenoma. [facility] 04/08/2021 1342 Local . 02 Electronically signed: . Sawyer Miller MD, PhD, Pathologist NPI- [id number] . 01 Gross description: . The specimen is received in formalin labeled cecal polyp and consists of a 0.3 x 0.2 x 0.2 cm morgan-pink fragment of soft tissue, which is entirely submitted in cassette A1. ([id number]) /[facility] 04/04/2021 1615 Local . 02 Pathologist provided ICD-10: D12.0 . 02 CPT . 055393 Performed at: 01 [facility] [address] [id number] MD Jared Hernandez MD Phone: [phone] Performed at: 02 [facility] [place] [address] [address] [place] [id number] MD Brenda Harris MD Phone: [phone]
[2021-04-03] MEDS: SODIUM CHLORIDE 0.9% 1,000 ML 200 ML IV (11:14)
--- NOTE | 2021-04-03 11:46 | PM.HP.1 ---
History of Present Illness History of Present Illness Date Patient Seen: 04/03/21 Time Patient Seen: 11:46 Chief complaint: SDC Narrative: This is a 60-year-old woman who had a prior colonoscopy about 6 years ago, during which several polyps were found for the patient. She denies any new symptoms of melena, hematochezia, unexplained abdominal pain, or explain weight loss since her last colonoscopy. ROS: Positive for asthma, cough, arthritis, back pain, ulcers, constipation, headaches, anxiety/depression, eczema. Thirteen system review is otherwise negative other than as mentioned below and in HPI. PE: GENERAL: Well groomed and cooperative. Appears stated age. Answers questions promptly and appropriately. Vital signs noted. HENT: Normocephalic, atraumatic. Hearing intact. EYES: Conjunctiva pink, sclera white, no periorbital swelling. CARDIOVASCULAR: Regular rate. No pedal edema. RESPIRATORY: Non-tachypneic, breathing comfortably on room air. GASTROINTESTINAL: Abdomen soft and non-distended GENITALURINARY: No flank tenderness. MUSCULOSKELETAL: Equal tone and mass bilaterally. SKIN: Warm, dry, soft, appropriate color for ethnicity. No other lesions, rashes, or wounds. NEURO: Alert and Oriented X 3. No gross sensory deficits, or cognitive issues. PSYCH: Appropriate affect and mood. Patient History Medical History Chronic pain Degenerative joint disease (DJD) of hip Family history of breast cancer Fibromyalgia Left hip pain Polyarthralgia Preventative health care Surgical History History of third molar tooth extraction History of tonsillectomy Status post laparoscopy (1988) Family & Social History Tobacco & Substance use: Smoking Status Former smoker alcohol intake never Substance Use Type does not use,other Meds Home Medications and Allergies Home Medications Medication Instructions Recorded Confirmed Type alprazolam 0.25 mg tablet See Rx Instructions PO .COMPLEX 01/05/19 04/03/21 Rx PRN #10 tab triamcinolone acetonide 0.5 % 1 applic TOP BID #45 gram 11/20/20 04/03/21 Rx topical cream albuterol sulfate 90 mcg/actuation 2 puff INHALATION Q4-6H PRN #8.5 01/01/21 03/24/21 Rx aerosol inhaler gram levothyroxine 75 mcg tablet 75 mcg PO DAILY 01/01/21 04/03/21 History duloxetine 30 mg capsule,delayed 30 mg PO DAILY #90 cap 02/24/21 04/03/21 Rx release ibuprofen 600 mg tablet 600 mg PO Q6H PRN 03/24/21 04/03/21 History morphine 10 mg capsule,extended 10 mg PO Q8H #90 cap 03/31/21 04/03/21 Rx release pellets Allergies Allergy/AdvReac Type Severity Reaction Status Date / Time Sulfa (Sulfonamide Allergy Mild RASH Verified 04/03/21 11:03 Antibiotics) clindamycin AdvReac Intermediate SEVERE Verified 04/03/21 11:03 DIARRHEA Exam Vital Signs (past 8 hours): - 04/03/21 11:06 Temperature 98.9 F Pulse Rate 76 Respiratory Rate 15 Blood Pressure 128/85 Pulse Oximetry 96 Oxygen Delivery Method Room Air Assessment & Plan Assessment and plan (1) Personal history of colonic polyps: Status: Acute Assessment & Plan narrative: Risks and benefits of screening colonoscopy and possible polypectomy were discussed with the patient including risk of bleeding, perforation, need for additional procedures, risks of anesthesia. The patient desires to proceed with the colonoscopy procedure. COVID-19 COVID-19 status: Negative Result date/Date tested (Pos, Neg/Pending): 04/02/21 Time Spent With Patient Time with patient: 15-24 minutes Quality VTE Deep Vein Thrombosis/Pulmonary Embolism Present on Admission: No
--- NOTE | 2021-04-03 11:50 | P.OP.ENDO_ITS ---
Operative Date/Time/Diagnoses Date of procedure: 04/03/21 Time of procedure: 11:50 Pre-op diagnosis: Personal history of colon polyps, due for surveillance colonoscopy Post-op diagnosis: other (Single polyp in the cecum) Procedure & Clinicians Study performed: Colonoscopy Procedural sedation performed by the endoscopist Polypectomy with Jumbo forceps Same procedure as scheduled: Yes Indications: Personal history of colon polyps, due for surveillance colonoscopy Surgeon: Daja Landry Procedure Notes SCOAP/Timeout: Performed Procedure in detail: The patient was brought to the room and placed in left lateral decubitus position with all bony prominences padded. A time-out was performed and then the patient was given procedural sedation starting with 4 mg of Versed and 100 mcg of fentanyl. Vitals were monitored throughout the procedure and remained stable. Once adequately sedated, the procedure was begun. A rectal exam was performed revealing no abnormalities. The colonoscope was then introduced to the rectum and advanced to the cecum in the usual fashion. The cecum was identified by the appendiceal orifice, the mucosal tri- fold, and the ileocecal valve. The scope was then retracted while rotating side to side and examining each mucosal fold. A small polyps out of the cecum and removed with Jumbo forceps. At the conclusion of the procedure small grade 1-2 internal hemorrhoids without stigmata of bleeding were seen. The scope was then withdrawn from the rectum the procedure was concluded. The patient tolerated the procedure well and was transferred to the PACU in stable condition. A total of 8 mg of Versed and 250 micro g of fentanyl were given for the entire procedure. Scope withdrawal time: 6 Sedation minutes: 24 Findings: polyp Specimen(s): other (Single polyp) Complications: none Post-procedure Recommendations: Colonscopy in 10 years (So long as pathology is non neoplastic) Follow up: as needed Disposition: PACU
[2021-04-03] MEDS: MIDAZOLAM 5 MG/5 ML VIAL IV (11:59)
[2021-04-03] MEDS: fentaNYL 250 MCG/5 ML INJ IV (11:59)
== END 2021-04-03 13:10 | disposition home or self-care (01) ==
PROVIDERS: PCP Family Medicine; Referring Provider Surgery; Visit Provider Surgery
PROC: 0DJD8ZZ Inspection of Lower Intestinal Tract, Via Natural or Artificial Opening Endoscopic (ICD-10-PCS; CPT 45378; principal; 2021-04-03 11:30)
DX: Z12.11 Encounter for screening for malignant neoplasm of colon (principal); Z86.010 Personal history of colon polyps; K64.0 First degree hemorrhoids; D12.0 Benign neoplasm of cecum
CPT/HCPCS: 45380; 99152; J2250; J3010

== ENCOUNTER → 2021-06-10 09:51 | Outpatient (CLI) | payer OTHER, SELFPAY ==
--- NOTE | 2021-06-10 09:53 | DI.RAD.S_ITS ---
PROCEDURE: XR CERVICAL SPINE 2V OR 3V INDICATIONS: cervical stenosis TECHNIQUE: 3 view(s) of the cervical spine were acquired. COMPARISON: [facility], , CERVICAL SPINE 2 OR 3 VIEWS, 05/15/2016, 11:26. FINDINGS: Bones: No fractures or dislocations to the T1 level. The lateral masses of C1 appear intact on the odontoid view. No suspicious bony lesions. There is grade 1 anterolisthesis of C2 on C3. Grade 1 retrolisthesis of C4 on C5 and C5 on C6. Degenerative disc disease is present, severe at C4-C5 and C5-C6, moderate at C6-C7. Bilateral facet arthropathy is present, most pronounced at C2-C3 and C3-C4. Soft tissues: No prevertebral soft tissue swelling. IMPRESSION: There is progression of degenerative disc and facet disease in cervical spine. Dictated by: Manohar Vivar M.D. on 06/10/2021 at 17:50 Approved by: Manohar Vivar M.D. on 06/10/2021 at 17:53
--- NOTE | 2021-06-10 09:53 | DI.RAD.S_ITS ---
PROCEDURE: XR LUMBAR SPINE 2-3V INDICATIONS: low back pain worsening TECHNIQUE: 3 views of the lumbar spine were acquired. COMPARISON: None. FINDINGS: Bones: 5 [id number] vertebrae are present. There is levo scoliotic low thoracic spine bony alignment. No vertebral body compression fractures. No suspicious bony lesions. Soft tissues: Overlying bowel gas pattern is normal. No suspicious soft tissue calcifications. IMPRESSION: The degenerative disc disease along the thoracolumbar junction is moderate in severity and then mild from the L1 level through S1. Facet osteoarthritis is moderate at L4-5 and L5-S1. No subluxation or prior compression fracture is associated. Dictated by: Ahsan Burton M.D. on 06/10/2021 at 15:15 Approved by: Ahsan Burton M.D. on 06/10/2021 at 15:16
[2021-06-10 11:51] LABS: Add Manual Diff / Slide Review NO; Basophils Absolute Auto 100 /uL (0-100); Basophils Percent Auto 0.9 % (0-2); Eosinophils Absolute Auto 200 /uL (0-450); Eosinophils Percent Auto 3.8 % (2-4); Hematocrit 41.4 % (36-46); Hemoglobin 13.8 g/dL (12.0-16.0); Lymphocytes Absolute Auto 2000 /uL (1100-4500); Lymphocytes Percent Auto 32.4 % (25-40); Mean Corpuscular HGB Conc 33.5 % (30-36); Mean Corpuscular Hemoglobin 28.1 PG (26-34); Mean Corpuscular Volume 84.1 fL (80-100); Monocytes Absolute Auto 500 /uL (0-900); Monocytes Percent Auto 7.7 % (3-14); Neutrophils Absolute Auto 3400 /uL (1500-7000); Neutrophils Percent Auto 55.2 % (50-75); Platelet Count 307 X10^3/uL (150-400); Red Blood Cell Count 4.92 X10^6/uL (4.0-5.2); Red Cell Distribution Width 13.7 % (11.6-14.8); White Blood Cell Count 6.2 X10^3/uL (4.5-11.0)
[2021-06-10 12:09] LABS: Alanine Aminotransferase 19 IU/L (<35); Albumin 4.3 g/dL (3.5-5.0); Albumin Globulin Ratio 1.6 (1.0-2.8); Alkaline Phosphatase 63 U/L (38-126); Aspartate Aminotransferase 29 IU/L (14-36); BUN Creatinine Ratio 22.6 (6-22); Bilirubin Total 0.5 mg/dL (0.2-1.3); Blood Urea Nitrogen 14 mg/dL (7-17); C-Reactive Protein Quant < 0.5 mg/dL (<1.0); Calcium 9.5 mg/dL (8.4-10.2); Carbon Dioxide 28 mmol/L (22-32); Chloride 104 mmol/L (98-107); Estimated Glomerular Filt Rate > 60.0 mL/min (>60); Globulin 2.7 g/dL (1.7-4.1); Glucose 101 mg/dL (70-100); HEMOLYSIS < 15 (0-50); Potassium 4.1 mmol/L (3.4-5.1); Sodium 138 mmol/L (137-145)
[2021-06-10 12:12] LABS: Erythrocyte Sedimentation Rate 3 MM/HR (0-20)
[2021-06-10 12:18] LABS: Rheumatoid Factor < 8.6 IU/mL (<12.0)
[2021-06-10 12:21] LABS: Free T4, Direct Thyroxine 1.07 ng/dL (0.78-2.19)
[2021-06-10 12:35] LABS: Thyroid Stimulating Hormone 1.19 uIU/mL (0.47-4.68)
[2021-06-10 12:40] LABS: UR Morphine/Opiate cutoff 300 Positive (Negative); Ur Creatinine Normal (Normal); Ur Specific Gravity Normal (Normal); Urine Amphetamines Negative (Negative); Urine Barbiturates Negative (Negative); Urine Benzodiazepines Negative (Negative); Urine Cocaine Negative (Negative); Urine MDMA Negative (Negative); Urine Methadone Negative (Negative); Urine Methamphetamines Negative (Negative); Urine Oxycodone Negative (Negative); Urine Phencyclidine Negative (Negative); Urine Tetrahydrocannabinol Positive (Negative); Urine Tricyclic Antidepressant Negative (Negative); Urine pH Normal (Normal)
[2021-06-12 15:02] LABS: ANA Screen, IFA Negative (.)
[2021-06-12 20:36] LABS: CCP Antibodies IgG/IgA 6 units (0-19)
== END ==
PROVIDERS: PCP Family Medicine; Referring Provider Family Medicine; Visit Provider Family Medicine
DX: M54.5 Low back pain (principal); M51.35 Other intervertebral disc degeneration, thoracolumbar region; M51.36 Other intervertebral disc degeneration, lumbar region; M47.816 Spondylosis without myelopathy or radiculopathy, lumbar region; M47.817 Spondylosis without myelopathy or radiculopathy, lumbosacral region; M16.0 Bilateral primary osteoarthritis of hip; M48.02 Spinal stenosis, cervical region; M47.812 Spondylosis without myelopathy or radiculopathy, cervical region; M50.321 Other cervical disc degeneration at C4-C5 level; E03.9 Hypothyroidism, unspecified; M25.50 Pain in unspecified joint; G89.29 Other chronic pain
CPT/HCPCS: 36415; 72040; 72100; 80053; 80305; 84439; 84443; 85025; 85651; 86038; 86140; 86200; 86430

== ENCOUNTER → 2021-09-01 13:18 | Outpatient (CLI) | payer OTHER, SELFPAY ==
--- NOTE | 2021-09-01 13:19 | DI.US.S_ITS ---
PROCEDURE: US PELVIC COMPLETE INDICATIONS: PELVIC AND PERINEAL PAIN TECHNIQUE: Real-time scanning was performed of the pelvic organs, with image documentation. Additional endovaginal scanning was necessary due to incomplete visualization of the adnexal and endometrial structures by transabdominal scanning. COMPARISON: [facility], US, PELVIC COMPLETE, 08/09/2012, 9:38. FINDINGS: Uterus: Anteverted, heterogeneous echotexture, and measures 6.9 x 4.2 x 2.8 cm. The endometrium measures 1.5 mm in combined thickness. Two ovoid hypoechoic lesions are seen, compatible with fibroids. Fibroid 1: Midline, anterior, intramural; measures 5 x 5 x 3 mm. Fibroid 2: Left, posterior, subserosal; measures 0.9 x 1.1 x 0.8 cm. Small amount of fluid is seen in the cervical canal. Ovaries: The left ovary is not well visualized. The right ovary measures 3.3 x 1.4 x 1 cm and demonstrates color flow. Other: No pathologic free abdominal or pelvic fluid. IMPRESSION: Myomatous change of the uterus as detailed above. Dictated by: James Bejarano M.D. on 09/01/2021 at 14:07 Approved by: James Bejarano M.D. on 09/01/2021 at 15:26
== END ==
PROVIDERS: PCP Family Medicine; Referring Provider Registered Nurse; Visit Provider Registered Nurse
DX: R10.2 Pelvic and perineal pain (principal); D25.1 Intramural leiomyoma of uterus; D25.2 Subserosal leiomyoma of uterus
CPT/HCPCS: 76830; 76856

== ENCOUNTER 2022-05-21 21:04 | Emergency (ER) | payer OTHER, SELFPAY ==
[2022-05-21 21:08] VITALS: BP 148/72; PULSE 72; RESP 16; TEMP 36.8; O2SAT 97; BMI 27.4
--- NOTE | 2022-05-21 21:17 | DI.RAD.S_ITS ---
PROCEDURE: XR TIBIA FUBULA RT 2V INDICATIONS: calf pain heard pop TECHNIQUE: 2 views of the tibia and fibula were acquired. COMPARISON: [facility], CR, XR ANKLE RT MIN 3V, 05/21/2022, 21:14. FINDINGS: Bones: There is a small ossicle along the tibiotalar joint anteriorly which is nonspecific and may represent a small fracture. No suspicious bony lesions. Soft tissues: No suspicious soft tissue calcifications or masses. IMPRESSION: 1. Suspected small fracture of the anterior tibia at the tibiotalar joint. Dictated by: Jared Gonzalez M.D. on 05/21/2022 at 22:38 Approved by: Jared Gonzalez M.D. on 05/21/2022 at 22:40
--- NOTE | 2022-05-21 21:17 | DI.RAD.S_ITS ---
PROCEDURE: XR ANKLE RT MIN 3V INDICATIONS: calf pain heard pop TECHNIQUE: 3 views of the ankle were acquired. COMPARISON: [facility], , ANKLE 3 VIEWS RIGHT, 08/29/2014, 12:41. FINDINGS: Bones: No definite acute fractures or dislocations. Ankle mortise is normally aligned. No suspicious bony lesions. Soft tissues: No tibiotalar joint effusion. There is a small calcification in the tibiotalar joint anteriorly which appears similar to the prior study. Achilles tendon appears intact. IMPRESSION: 1. No definite acute fracture or dislocation. 2. Small ossicle anteriorly at the tibiotalar joint is nonspecific but appears similar to the prior study. The findings likely represent a small calcified joint body or dystrophic calcification. Dictated by: Jared Gonzalez M.D. on 05/21/2022 at 22:40 Approved by: Jared Gonzalez M.D. on 05/21/2022 at 22:42
--- NOTE | 2022-05-21 23:30 | ED.LOWEXIN ---
HPI - Extremity Injury (Lower) General Chief Complaint: Extremity Injury, Lower Stated Complaint: rt leg pain Time Seen by Provider: 05/21/22 21:54 Source: patient Mode of arrival: Ambulatory Limitations: no limitations History of Present Illness HPI Narrative: This is a 61-year-old female who states 2 weeks ago she is playing tennis when she injured her right calf. Last Wednesday, the 16 of May she was playing [place] ball and re-injured the same location. She is had increasing swelling and now bruising down into her foot. She states the calf has become more painful and uncomfortable she finds it helpful to wear compression sock. But she notes that there is increasing tightness down into her foot. She has not appreciate any warmth, redness or other changes besides bruising. She notes that ambulation does cause increased pain at the calf. She has not had similar issues at this location before. She does not have any bony pain. No numbness, tingling or weakness. Patient is normally quite active and plays a lot of sports. She sees Dr. Pizarro's for her back she takes morphine 2 mg daily and has added ibuprofen increasing from twice daily to 4 times daily 600 mg. Patient presents this evening as she called the nursing hotline for her health insurance and they told her to come to the ER. Related Data Home Medications Medication Instructions Recorded Confirmed cannabidiol 100 mg/mL oral solution PO BID 12/29/21 03/25/22 ibuprofen 600 mg tablet 600 mg PO BID PRN Breakthrough 12/29/21 03/25/22 Pain, Moderate Previous Rx's Medication Instructions Recorded triamcinolone acetonide 0.5 % 1 applic topical BID #45 grams 11/20/20 topical cream albuterol sulfate 90 mcg/actuation 2 puff inhalation Q4-6H PRN asthma 01/01/21 aerosol inhaler (ProAir HFA) #8.5 grams estradiol 0.0375 mg/24 hr 1 patch transdermal 2XW #24 ea 10/24/21 semiweekly transdermal patch (Vivelle-Dot) progesterone micronized 100 mg 100 mg PO BEDTIME #90 caps 10/24/21 capsule (Prometrium) levothyroxine 88 mcg tablet See Rx Instructions .Route 01/20/22 .COMPLEX #90 tabs naloxone 4 mg/actuation nasal 4 mg intranasal Q2M PRN opioid 02/18/22 spray (Narcan) overdose #2 ea duloxetine 60 mg capsule,delayed See Rx Instructions .Route 04/21/22 release .COMPLEX #90 caps morphine 15 mg tablet,extended 15 mg PO Q12H #60 tabs 05/14/22 release Allergies Allergy/AdvReac Type Severity Reaction Status Date / Time Sulfa (Sulfonamide Allergy Mild RASH Verified 03/25/22 10:06 Antibiotics) clindamycin AdvReac Intermediate SEVERE Verified 03/25/22 10:06 DIARRHEA Review of Systems Review of Systems ROS Unobtainable: All systems reviewed & are unremarkable except as noted in HPI and below Patient History Medical History Chronic pain Degenerative joint disease (DJD) of hip Family history of breast cancer Fibromyalgia Left hip pain Low back pain Lumbar pain with radiation down left leg Pelvic pain Polyarthralgia Preventative health care Surgical History History of third molar tooth extraction History of tonsillectomy Status post laparoscopy (1988) Social History Smoking Status: Former smoker Tobacco: How many years used: 10 alcohol intake: never substance use type: does not use Smoking Status: Former smoker Substance Use Type: does not use and other Exam Narrative Exam Narrative: GENERAL: Alert and oriented x three, female in mild distress HEENT: Head normocephalic, atraumatic, EOMI, pupils reactive, face symmetric, moist mucous membranes NECK: Supple, full range of motion EXTREMITIES: Normal range of motion, no clubbing. Patient has some swelling of her right lower extremity particularly pedal daily. She has ecchymosis of the medial side of the foot. She has mild tenderness over the mid calf but with no warmth, erythema or other skin changes. She has normal dorsiflexion plantar flexion. Achilles tendon is intact palpable and nontender. Patient does not have any bony tenderness throughout the leg and has normal range of motion. Neurovascularly intact. 2+ dorsalis pedis. Normal sensation. NEUROLOGICAL: Cranial nerves II through XII grossly intact. Moving all extremities SKIN: Warm, dry, no petechiae, no rashes or lesions other than described above Initial Vital Signs Initial Vital Signs: Vital Signs Temperature 98.3 F 05/21/22 21:08 Pulse Rate 72 05/21/22 21:08 Respiratory Rate 16 05/21/22 21:08 Blood Pressure 148/72 H 05/21/22 21:08 Pulse Oximetry 97 05/21/22 21:08 Oxygen Delivery Method 05/21/22 21:08 Course Orders Ordered: ED Orders 05/21/22 21:17 XR ankle RT min 3V Stat XR tibia fibula RT 2V Stat Vital Signs Vital signs: Vital Signs - 8 hr 05/21/22 21:08 Temperature 98.3 F Pulse Rate 72 Respiratory Rate 16 Blood Pressure 148/72 H Pulse Oximetry 97 Oxygen Delivery Method Room Air MDM - Extremity Injury (Lower) Imaging Data Extremity x-ray #1: Radiologist's Impression: [address] [address] XRay Report Signed Patient: Denisha Nguyen MR#: [id number] : 1960 Acct:[id number] Age/Sex: 61 / F Date of Service: 05/21/22 Loc: ED Accession Number: [id number] ?? Procedure: XR tibia fibula RT 2V Ordering Provider: Anuradha España D.O. PROCEDURE:? XR TIBIA FUBULA RT 2V ? INDICATIONS:? calf pain heard pop ? TECHNIQUE:? 2 views of the tibia and fibula were acquired.? ? COMPARISON:? [facility], , XR ANKLE RT MIN 3V, 05/21/2022, 21:14. ? FINDINGS:? ? Bones:? There is a small ossicle along the tibiotalar joint anteriorly which is nonspecific and may represent a small fracture.? No suspicious bony lesions.? ? Soft tissues:? No suspicious soft tissue calcifications or masses.? ? IMPRESSION:? ? 1. Suspected small fracture of the anterior tibia at the tibiotalar joint. ? ? Dictated by: Jared Gonzalez M.D. on 05/21/2022 at 22:38 ? ? Approved by: Jared Gonzalez M.D. on 05/21/2022 at 22:40?? Extremity x-ray #2: Radiologist's Impression: [address] [address] XRay Report Signed Patient: Denisha Nguyen MR#: [id number] : 1960 Acct:[id number] Age/Sex: 61 / F Date of Service: 05/21/22 Loc: ED Accession Number: [id number] ?? Procedure: XR ankle RT min 3V Ordering Provider: Anuradha España D.O. PROCEDURE:? XR ANKLE RT MIN 3V ? INDICATIONS:? calf pain heard pop ? TECHNIQUE:? 3 views of the ankle were acquired.? ? COMPARISON:? [facility], , ANKLE 3 VIEWS RIGHT, 08/29/2014, 12:41. ? FINDINGS:? ? Bones:? No definite acute fractures or dislocations.? Ankle mortise is normally aligned.? No suspicious bony lesions.? ? Soft tissues:? No tibiotalar joint effusion.? There is a small calcification in the tibiotalar joint anteriorly which appears similar to the prior study.? Achilles tendon appears intact.? ? ? IMPRESSION:? ? 1. No definite acute fracture or dislocation. ? 2. Small ossicle anteriorly at the tibiotalar joint is nonspecific but appears similar to the prior study.? The findings likely represent a small calcified joint body or dystrophic calcification. ? ? ? Dictated by: Jared Gonzalez M.D. on 05/21/2022 at 22:40 ? ? Approved by: Jared Gonzalez M.D. on 05/21/2022 at 22:42?? [facility] Narrative Medical decision making narrative: This is a 61-year-old female who had likely muscle tear of her calf and re-injured it within a week. She is had some developing ecchymosis at her foot likely secondary to gravity. She is nontender on bony exam she has some mild tenderness over the calf no warmth or erythema and with her recent traumatic injury patient has continued to be quite active my suspicion for DVT is quite low. Patient did have x-ray imaging she has a small ossicle at the tibiotalar joint which is also noted on tib-fib x-ray she is nontender in this area. Discussed with patient decreasing her activity she defers crutches but would put her in a walking boot to decrease the likelihood of re-injuring it with hyperflexion. Plan for follow-up with orthopedic surgery. Patient plans to continue her home pain medications and ibuprofen which she has appropriately dosed. We discussed return precautions all questions answered. Discharge Plan Departure Patient Disposition: Home Clinical Impression: Injury of calf Instructions: Calf Muscle Strain Activity Restrictions/Additional Instructions: I suspect you have actually torn the muscle itself in your calf and not just strained. Please follow-up with orthopedic surgery. You can continue your current pain medication regimen. Wear splint while ambulating or being active. I would recommend avoiding sports currently. You may find wearing a compression sock on her lower extremity is helpful and he can continue to do this. Splint Care: Keep splint clean and dry. Elevated affected body part to decrease swelling. OK to use ice pack on the affected body part. You can use heat to the areas with ecchymosis in your foot. Use for 15-20 minutes each time, for 5-6x per day. If you develop worsening pain, numbness, tingling, discoloration of the affected body part, loosen the splint by loosening the EFREN wrap, and either see your doctor for an urgent re-assessment, or return to the Emergency Department. Return to the Emergency Department for any new or worsening symptoms. Prescriptions: No Action triamcinolone acetonide 0.5 % cream 1 applic TOP BID Qty: 45 5RF Rx Instructions: 1 APPLICATION TOPICALLY TWICE DAILY OR DIRECTED albuterol sulfate [ProAir HFA] 90 mcg/actuation HFA aerosol inhaler 2 puff INHALATION Q4-6H PRN (Reason: asthma) Qty: 8.5 0RF levothyroxine 88 mcg tablet See Rx Instructions .ROUTE .COMPLEX Qty: 90 1RF Dose Instruction: Take 1 tablet (0.088 mg) by mouth daily Rx Instructions: Take 1 tablet (0.088 mg) by mouth daily duloxetine 60 mg capsule,delayed release(DR/EC) See Rx Instructions .ROUTE .COMPLEX Qty: 90 1RF Dose Instruction: Take 1 capsule (60 mg) by mouth daily Rx Instructions: Take 1 capsule (60 mg) by mouth daily morphine 15 mg tablet extended release 15 mg PO Q12H Qty: 60 0RF Rx Instructions: Must last 30 days estradiol [Vivelle-Dot] 0.0375 mg/24 hr patch semiweekly 1 patch transdermal 2XW Qty: 24 4RF Rx Instructions: apply 1 patch for 3 days alternating with 1 patch for 4 days each week progesterone micronized [Prometrium] 100 mg capsule 100 mg PO BEDTIME Qty: 90 4RF naloxone [Narcan] 4 mg/actuation spray,non-aerosol 4 mg intranasal Q2M PRN (Reason: opioid overdose) Qty: 2 1RF Rx Instructions: spray 1 dose into ONE nostril; alternate nostrils w each dose until help arrives ibuprofen 600 mg tablet 600 mg PO BID PRN (Reason: Breakthrough Pain, Moderate) cannabidiol 100 mg/mL solution PO BID Referrals: Jack Townsend MD [Physician] - Junior Andersen DO [Primary Care Provider] - Visit Report Forms: Patient Portal/API
[2022-05-22 00:01] VITALS: BP 138/70; PULSE 71; RESP 18; O2SAT 97
== END 2022-05-22 00:02 | disposition home or self-care (01) ==
PROVIDERS: Emergency Provider Emergency Medicine; PCP Family Medicine
DX: S89.91XA Unspecified injury of right lower leg, initial encounter (principal); Y93.69 Activity, other involving other sports and athletics played as a team or group
CPT/HCPCS: 73590; 73610; 99281; 99283

== ENCOUNTER → 2022-06-30 12:08 | Outpatient (CLI) | payer OTHER, SELFPAY ==
--- NOTE | 2022-06-30 12:10 | DI.MRI.S_ITS ---
PROCEDURE: MR LUMBAR SPINE WO CON INDICATIONS: LBP with left sciatica TECHNIQUE: Noncontrast sagittal T1 spin echo and T2 fast echo, sagittal STIR, and T2 fast spin echo through the lumbar spine. In cases with scoliosis, additional coronal T2 fast spin echo may be performed. COMPARISON: None. FINDINGS: Image quality: Excellent. Alignment and Curvature: There is normal bony alignment. Bone Marrow: Marrow is of normal overall signal. No acute vertebral body compression fractures. Spinal Cord: Conus medullaris terminates at the L1 level. Visualized cord demonstrates normal signal and size. Paraspinous Soft Tissues: No paravertebral masses. 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 T12-L1: Moderate disc desiccation and height loss. Broad-based disc bulge. Mild facet and ligamentum flavum hypertrophy. No canal stenosis. Mild right neural foraminal narrowing. No left foraminal stenosis. L1-L2: Mild disc desiccation and height loss. Broad-based disc bulge. No canal stenosis. No foraminal stenosis. L2-L3: Mild disc desiccation and height loss. Broad-based disc bulge. No canal stenosis. Moderate bilateral neural foraminal stenosis. There is a small focal posterior high-intensity zone present. L3-L4: Mild disc desiccation and height loss. Broad-based disc bulge. No canal stenosis. Mild right and moderate left neural foraminal stenosis. There is a small focal posterior high-intensity zone present. L4-L5: Mild disc desiccation and height loss. Broad-based disc bulge. Severe facet ligamentum flavum hypertrophy. There is narrowing of the left lateral recess with mild impingement of the exiting L5 nerve roots. No canal stenosis. Mild bilateral foraminal stenosis. L5-S1: Moderate disc desiccation and height loss. Broad-based disc bulge. There is a left lateral 0.4 x 1.0 x 0.5 cm disc protrusion. This likely abuts the exiting L5 nerve root. Mild facet sclerosis. No canal stenosis. There is a small focal posterior high-intensity zone present. IMPRESSION: 1. Mild to moderate disc desiccation and height loss most severe at T12-L1 and L5-S1. 2. No canal stenosis of the lumbar spine. 3. Moderate left foraminal stenosis at L3-4. 4. Posterior annular fibrosis tears at L2-3, L3-4, and L5-S1. 5. Left lateral L5-S1 disc protrusion which likely abuts the exiting nerve root. 6. Narrowing of the left lateral recess at L4-5 with subtle impingement on the exiting left L5 nerve root. Dictated by: Gladys Waters M.D. on 06/30/2022 at 13:36 Approved by: Gladys Waters M.D. on 06/30/2022 at 13:46
== END ==
PROVIDERS: PCP Family Medicine; Referring Provider Physical Medicine & Rehabilitation; Visit Provider Physical Medicine & Rehabilitation
DX: M51.26 Other intervertebral disc displacement, lumbar region (principal); M51.27 Other intervertebral disc displacement, lumbosacral region; M48.061 Spinal stenosis, lumbar region without neurogenic claudication; M79.605 Pain in left leg
CPT/HCPCS: 72148

== ENCOUNTER → 2022-09-15 08:18 | Outpatient (CLI) | payer OTHER, SELFPAY ==
[2022-09-15 10:13] LABS: Add Manual Diff / Slide Review NO; Basophils Absolute Auto 100 /uL (0-100); Basophils Percent Auto 1.1 % (0-2); Eosinophils Absolute Auto 500 /uL (0-450); Eosinophils Percent Auto 6.9 % (2-4); Hematocrit 40.1 % (36-46); Hemoglobin 13.5 g/dL (12.0-16.0); Lymphocytes Absolute Auto 2500 /uL (1100-4500); Lymphocytes Percent Auto 36.2 % (25-40); Mean Corpuscular HGB Conc 33.6 % (30-36); Mean Corpuscular Volume 83.4 fL (80-100); Monocytes Absolute Auto 600 /uL (0-900); Monocytes Percent Auto 8.6 % (3-14); Neutrophils Absolute Auto 3300 /uL (1500-7000); Neutrophils Percent Auto 47.2 % (50-75); Platelet Count 319 X10^3/uL (150-400); Red Cell Distribution Width 13.9 % (11.6-14.8); White Blood Cell Count 6.9 X10^3/uL (4.5-11.0)
[2022-09-15 10:28] LABS: Alanine Aminotransferase 28 IU/L (<35); Albumin 4.1 g/dL (3.5-5.0); Albumin Globulin Ratio 1.4 (1.0-2.8); Alkaline Phosphatase 63 U/L (38-126); Aspartate Aminotransferase 24 IU/L (14-36); BUN Creatinine Ratio 16.7 (6-22); Bilirubin Total 0.5 mg/dL (0.2-1.3); Blood Urea Nitrogen 11 mg/dL (7-17); Calcium 8.4 mg/dL (8.4-10.2); Carbon Dioxide 26 mmol/L (22-32); Chloride 103 mmol/L (98-107); Estimated Glomerular Filt Rate > 60 mL/min (>60); Globulin 2.9 g/dL (1.7-4.1); Glucose 95 mg/dL (80-110); HEMOLYSIS < 15 (0-50); Sodium 139 mmol/L (137-145)
[2022-09-15 11:02] LABS: Free T4, Direct Thyroxine 1.27 ng/dL (0.78-2.19); Testosterone 45.4 ng/dL (5.71-77.0)
[2022-09-15 11:15] LABS: Thyroid Stimulating Hormone 1.03 uIU/mL (0.47-4.68)
[2022-09-18 18:37] LABS: Estrogen 110 pg/mL (40-244)
== END ==
PROVIDERS: PCP Family Medicine; Referring Provider Obstetrics & Gynecology; Visit Provider Family Medicine
DX: Z00.00 Encounter for general adult medical examination without abnormal findings (principal); E03.9 Hypothyroidism, unspecified; Z78.0 Asymptomatic menopausal state; Z79.890 Hormone replacement therapy
CPT/HCPCS: 36415; 80053; 82672; 84403; 84439; 84443; 85025

== ENCOUNTER 2022-09-17 15:27 | Outpatient (CLI) | payer OTHER, SELFPAY ==
[2022-09-17] VITALS (9 sets, daily range): BP systolic 113–149; BP diastolic 55–94; PULSE 71–81; RESP 10–21; O2SAT 95–100
--- NOTE | 2022-09-17 15:33 | DI.RAD.S_ITS ---
PROCEDURE: PAIN L/S TRANSFORAMINAL INJECT INDICATIONS: SPONDYLOSIS COMPARISON: None. FINDINGS: Fluoroscopic spot filming was performed to verify placement of spinal needles at the L5-S1 level(s), as labeled on the films. Appropriate location(s) of the needle tip(s) was confirmed by injection of iodinated contrast. IMPRESSION: Needle placement overlying L5-S1. Dictated by: Marisa Lopez M.D. on 09/17/2022 at 17:29 Approved by: Marisa Lopez M.D. on 09/17/2022 at 17:29
[2022-09-17] MEDS: MIDAZOLAM 2 MG/2 ML VIAL 4 MG IV (16:08)
[2022-09-17] MEDS: BUPIVACAINE 0.25% (PF) VIAL 2 ML SUBCUT (16:09)
[2022-09-17] MEDS: BETAMETHASONE 30 MG/5 ML MDV 6 MG INJ (16:10)
[2022-09-17] MEDS: IOPAMIDOL 15 ML VIAL 3 ML INJ (16:10)
[2022-09-17] MEDS: DEXAMETHASONE 10 MG/ML VIAL 20 MG INJ (16:11)
--- NOTE | 2022-09-17 16:23 | P.PCN_ITS ---
Date/Time/Diagnoses Date of procedure: 09/17/22 Time of procedure: 16:23 Pre-procedure diagnosis: 1. FORAMINAL STENOSIS WITH LE SYMPTOMS Post-procedure diagnosis: same Procedure Notes Procedure: 1. FLUOROSCOPICALLY GUIDED CONTRAST CONTROLLED TRANSFORAMINAL EPIDURAL STEROID INJECTION - Left L5/S1 Indications: Denisha is referred by Dr. Andersen for treatment of Foraminal Stenosis with Left LE Symptoms Physician: Misael Pizarro Total Fluoroscopy time (seconds): 11 Total sedation minutes: 10 Complications: none Procedure in detail & Post-procedure care: FINDINGS Foraminal Nerve Root Compression secondary to disc disease and facet hypertrophy DESCRIPTION OF PROCEDURE Following review of allergy and review of potential side effects and complications, including, but not necessarily limited to, infection, allergic reaction, local tissue breakdown, stroke, temporary or permanent nerve injury, paralysis, and possible , the patient indicated that the patient understood and agreed to proceed. An informed consent document was signed by the patient, witnessed by a nurse, and placed in the patient's chart. Additionally, other treatment options including medications, modalities, and physical therapy were reviewed with the patient. After review of previous anaesthesic history and IV conscious sedation the patient was deemed safe to proceed with today?s procedure with IV conscious sedation as ASA class II designation. Safety time-out was performed to confirm patient ID, procedure to be performed and site of procedure. IV sedation was accomplished with a combination of 4mg of Versed was administered by the RN after DO order, titrated to patient comfort during the course of the procedure while the patient remained responsive to all verbal commands In the prone position following sterile prep and drape of the lumbar region, the Left L5/S1 posterior neuroforamen was identified fluoroscopically. The skin was anesthetized via a 25-gauge 1.5-inch needle with 1% lidocaine solution. At this point, a 22-gauge 5-inch spinal needle was atraumatically introduced and advanced under fluoroscopic guidance through the posterior Left L5/S1 neuroforamen to approximately the anterior aspect of the canal. Depth was confirmed on lateral view. Following negative aspiration, injection of approximately 1.5 cc of Isovue 200 under live fluoroscopy in the AP view confirmed excellent flow along the nerve root, into the epidural space without vascular or intrathecal uptake observed Radiological data, including multiple fluoroscopic views of the lumbosacral spine, reveal a spinal needle at the Left L5/S1 posterior neuroforamen. Subsequent views show flow of contrast material flowing superiorly and inferiorly along the nerve root confirming epidural flow. Subsequently, a test dose of 1.5 cc of 1% lidocaine solution was administered and patient was observed for two minutes for signs or symptoms of complications, including abdominal pain, shortness of breath, bilateral upper or lower extremity weakness, nausea and vomiting, prior to steroid injection. At this point, a total of 3cc or 20mg of dexamethasone and 6mg of betamethasone was injected without incident. The procedure tolerated the procedure well without signs or symptoms of complications prior to transfer to the recovery area continued monitoring without incident. The patient was then transferred to the recovery area where they were observed for an appropriate time after the injection. The patient reported a VAS score of 7 prior to the procedure and a post-procedure VAS of 0. POST OP INSTRUCTIONS The patient was provided a Pain Log to continue to record their response to the target-specific procedure prior to follow-up visit with their referring physi troy. Additionally, specific post-injection care instructions and a contact number to our office were provided if concerns arise regarding possible complications associated with the procedure are suspected.
== END 2022-09-17 16:42 | disposition home or self-care (01) ==
LOC: RAD 15:28
PROVIDERS: PCP Family Medicine; Referring Provider Physical Medicine & Rehabilitation; Visit Provider Physical Medicine & Rehabilitation
DX: M48.07 Spinal stenosis, lumbosacral region (principal); M51.17 Intervertebral disc disorders with radiculopathy, lumbosacral region
CPT/HCPCS: 64483; 99152; J0702; J1100; J2250; J3490

== ENCOUNTER → 2022-09-24 08:48 | Outpatient (CLI) | payer OTHER, SELFPAY ==
--- NOTE | 2022-09-24 | DI.MG.S_ITS ---
BILATERAL DIGITAL SCREENING MAMMOGRAM 3D/2D WITH CAD: 09/24/2022 CLINICAL: Routine screening. Family history of breast cancer. Comparison is made to exams dated: 10/10/2015 mammogram, 10/09/2014 mammogram, and 09/06/2013 mammogram - [facility]. Both breasts are heterogeneously dense, which may obscure small masses (category c / 51-75% glandular tissue). Current study was also evaluated with a Computer Aided Detection (CAD) system. There are benign calcifications in both breasts. There also are biopsy clips in the left breast. Excisional biopsy scarring noted in the left breast. No significant masses, calcifications, or other findings are seen in either breast. IMPRESSION: BENIGN There is no mammographic evidence of malignancy. A 1 year screening mammogram is recommended. Based on Tyrer-Cuzick model (a risk assessment model), the patient's lifetime risk is 30.5% and her 10 year risk is 13.7%. If a patient has an elevated risk, a more comprehensive evaluation should be considered and/or a referral to a genetic counselor. The [place] [employer], [place] [employer], and NCCN Guidelines advise the consideration of Breast MRI as an adjunct to screening mammography in patients whose Lifetime risk to develop breast cancer is 20% or higher. This exam was interpreted at Station ID: [id number]. NOTE: For mammograms, a report in lay terms will be sent to the patient. Approximately 15% of breast malignancies will not be visualized mammographically. In the management of a palpable breast mass, a negative mammogram must not discourage biopsy of a clinically suspicious lesion. Electronically Signed By: Rush Shepard M.D. aty/:09/24/2022 14:29:39 letter sent: Normal Exam ACR BI-RADS Category 2: Benign Finding(s) 3342F
== END ==
PROVIDERS: PCP Family Medicine; Referring Provider Family Medicine; Visit Provider Family Medicine
DX: Z12.31 Encounter for screening mammogram for malignant neoplasm of breast (principal); Z80.3 Family history of malignant neoplasm of breast
CPT/HCPCS: 77063; 77067

== ENCOUNTER → 2022-12-16 11:05 | Outpatient (CLI) | payer OTHER, SELFPAY ==
[2022-12-16 11:59] LABS: Hematocrit 36.7 % (36-46); Hemoglobin 12.2 g/dL (12.0-16.0); Mean Corpuscular HGB Conc 33.2 % (30-36); Mean Corpuscular Hemoglobin 27.7 PG (26-34); Mean Corpuscular Volume 83.4 fL (80-100); Platelet Count 269 X10^3/uL (150-400); Red Cell Distribution Width 13.5 % (11.6-14.8); White Blood Cell Count 5.2 X10^3/uL (4.5-11.0)
[2022-12-16 12:07] LABS: COVID-19 CEPHEID 4-PLEX PCR Negative (Negative); Influenza A - CEPHEID Flu A NEGATIVE (NEGATIVE); Influenza B - CEPHEID Flu B NEGATIVE (NEGATIVE); Respiratory Syncytial Virus Negative (Negative)
[2022-12-16 12:37] LABS: Alanine Aminotransferase 34 IU/L (<35); Albumin 4.2 g/dL (3.5-5.0); Albumin Globulin Ratio 1.6 (1.0-2.8); Alkaline Phosphatase 77 U/L (38-126); Aspartate Aminotransferase 30 IU/L (14-36); BUN Creatinine Ratio 20.8 (6-22); Bilirubin Total 0.2 mg/dL (0.2-1.3); Blood Urea Nitrogen 11 mg/dL (7-17); Calcium 9.4 mg/dL (8.4-10.2); Carbon Dioxide 25 mmol/L (22-32); Chloride 104 mmol/L (98-107); Estimated Glomerular Filt Rate > 60 mL/min (>60); Globulin 2.7 g/dL (1.7-4.1); Glucose 98 mg/dL (80-110); HEMOLYSIS < 15 (0-50); Magnesium 1.9 mg/dL (1.6-2.3); Potassium 4.1 mmol/L (3.4-5.1); Sodium 138 mmol/L (137-145); Total Protein 6.9 g/dL (6.3-8.2)
[2022-12-16 12:59] LABS: TSH w/ Reflex to FT4 3.83 uIU/mL (0.47-4.68)
[2022-12-17 17:49] LABS: Interpretation Negative (Negative)
== END ==
PROVIDERS: PCP Family Medicine; Referring Provider Nurse Practitioner Family; Visit Provider Nurse Practitioner Family
DX: R11.0 Nausea (principal); R19.7 Diarrhea, unspecified; R00.2 Palpitations; R42 Dizziness and giddiness; K21.9 Gastro-esophageal reflux disease without esophagitis
CPT/HCPCS: 0241U; 36415; 80053; 83013; 83735; 84443; 85027

== ENCOUNTER → 2022-12-17 16:29 | Outpatient (CLI) | payer OTHER, SELFPAY | PROVIDERS: PCP Family Medicine; Referring Provider Nurse Practitioner Family; Visit Provider Nurse Practitioner Family | DX: R19.7 Diarrhea, unspecified (principal); K21.9 Gastro-esophageal reflux disease without esophagitis | CPT/HCPCS: 87045; 87177; 87899 ==

== ENCOUNTER → 2023-10-13 15:36 | Outpatient (CLI) | payer OTHER, SELFPAY ==
[2023-10-13 16:48] LABS: Thyroid Stimulating Hormone 0.152 uIU/mL (0.47-4.68)
== END ==
PROVIDERS: PCP Nurse Practitioner; Referring Provider Nurse Practitioner; Visit Provider Nurse Practitioner
DX: R19.7 Diarrhea, unspecified (principal); E03.9 Hypothyroidism, unspecified
CPT/HCPCS: 36415; 84439; 84443; 84481

== ENCOUNTER → 2024-01-13 16:28 | Outpatient (CLI) | payer OTHER, SELFPAY ==
[2024-01-13 17:43] LABS: Add Manual Diff / Slide Review NO; Basophils Absolute Auto 100 /uL (0-100); Basophils Percent Auto 1.1 % (0-2); Eosinophils Absolute Auto 400 /uL (0-450); Eosinophils Percent Auto 5.5 % (2-4); Hematocrit 38.1 % (36-46); Lymphocytes Absolute Auto 3000 /uL (1100-4500); Lymphocytes Percent Auto 39.2 % (25-40); Mean Corpuscular Hemoglobin 28.1 PG (26-34); Mean Corpuscular Volume 82.6 fL (80-100); Monocytes Absolute Auto 600 /uL (0-900); Monocytes Percent Auto 8.1 % (3-14); Neutrophils Absolute Auto 3600 /uL (1500-7000); Neutrophils Percent Auto 46.1 % (50-75); Platelet Count 342 X10^3/uL (150-400); Red Blood Cell Count 4.62 X10^6/uL (4.0-5.2); White Blood Cell Count 7.7 X10^3/uL (4.5-11.0)
[2024-01-13 18:55] LABS: Alanine Aminotransferase 20 IU/L (<35); Albumin 4.1 g/dL (3.5-5.0); Albumin Globulin Ratio 1.5 (1.0-2.8); Alkaline Phosphatase 57 U/L (38-126); Aspartate Aminotransferase 25 IU/L (14-36); BUN Creatinine Ratio 24.3 (6-22); Bilirubin Total 0.7 mg/dL (0.2-1.3); Blood Urea Nitrogen 17 mg/dL (7-17); Calcium 8.8 mg/dL (8.4-10.2); Carbon Dioxide 28 mmol/L (22-32); Chloride 104 mmol/L (98-107); Cholesterol 223 mg/dL (140-199); Estimated Glomerular Filt Rate > 60 mL/min (>60); Globulin 2.7 g/dL (1.7-4.1); Glucose 121 mg/dL (80-110); HDL Cholesterol 86 mg/dL (40-60); HEMOLYSIS < 15 (0-50); LDL Cholesterol Calculated 120 mg/dL (<100); Potassium 3.7 mmol/L (3.4-5.1); Sodium 136 mmol/L (137-145); Total Protein 6.8 g/dL (6.3-8.2); Triglycerides 85 mg/dL (35-150)
[2024-01-13 19:59] LABS: Creatinine Urine Random 41.6 mg/dL
[2024-01-13 20:43] LABS: Microalbumin Urine Random < 0.6 mg/dL (0-1.6)
[2024-01-13 20:54] LABS: Thyroid Stimulating Hormone 1.35 uIU/mL (0.47-4.68)
[2024-01-13 21:08] LABS: HIV 1 & 2 Ab/Ag 4th Gen Combo NEGATIVE (NEGATIVE); Hep C Virus Ab w/Reflex Quant NEGATIVE s/c (NEGATIVE)
== END ==
LOC: LAB 16:29
PROVIDERS: PCP Nurse Practitioner; Referring Provider Nurse Practitioner; Visit Provider Nurse Practitioner
DX: Z00.00 Encounter for general adult medical examination without abnormal findings (principal); Z11.4 Encounter for screening for human immunodeficiency virus [HIV]; Z11.59 Encounter for screening for other viral diseases; E03.9 Hypothyroidism, unspecified
CPT/HCPCS: 36415; 80053; 80061; 82043; 82570; 84443; 85025; 86803; 87389

== ENCOUNTER → 2024-12-15 14:46 | Outpatient (CLI) | payer OTHER, SELFPAY | PROVIDERS: PCP Family Medicine; Visit Provider Physician Assistant Surgical | DX: R30.0 Dysuria (principal) | CPT/HCPCS: 87077; 87086; 87186 ==

== ENCOUNTER 2024-12-15 15:07 | Emergency (ER) | payer OTHER, SELFPAY ==
[2024-12-15 15:33] VITALS: BP 120/64; PULSE 81; RESP 20; TEMP 36.9; O2SAT 97; BMI 25.7
[2024-12-15 15:56] LABS: Add Manual Diff / Slide Review NO; Basophils Absolute Auto 100 /uL (0-100); Basophils Percent Auto 0.5 % (0-2); Eosinophils Absolute Auto 0 /uL (0-450); Eosinophils Percent Auto 0.1 % (2-4); Hemoglobin 13.3 g/dL (12.0-16.0); Lymphocytes Absolute Auto 700 /uL (1100-4500); Lymphocytes Percent Auto 5.3 % (25-40); Mean Corpuscular HGB Conc 34.1 % (30-36); Mean Corpuscular Hemoglobin 28.3 PG (26-34); Monocytes Absolute Auto 1000 /uL (0-900); Monocytes Percent Auto 7.7 % (3-14); Neutrophils Absolute Auto 11700 /uL (1500-7000); Neutrophils Percent Auto 86.4 % (50-75); Platelet Count 277 X10^3/uL (150-400); Red Blood Cell Count 4.69 X10^6/uL (4.0-5.2); Red Cell Distribution Width 13.9 % (11.6-14.8); White Blood Cell Count 13.6 X10^3/uL (4.5-11.0)
[2024-12-15 16:08] LABS: Alanine Aminotransferase 21 IU/L (<35); Albumin 4.4 g/dL (3.5-5.0); Albumin Globulin Ratio 1.5 (1.0-2.8); Alkaline Phosphatase 69 U/L (38-126); Aspartate Aminotransferase 27 IU/L (14-36); Bilirubin Total 1.5 mg/dL (0.2-1.3); Blood Urea Nitrogen 15 mg/dL (7-17); Calcium 9.1 mg/dL (8.4-10.2); Carbon Dioxide 22 mmol/L (22-32); Chloride 101 mmol/L (98-107); Estimated Glomerular Filt Rate > 60 mL/min (>60); Glucose 112 mg/dL (80-110); HEMOLYSIS < 15 (0-50); Lipase 74 U/L (23-300); Potassium 3.7 mmol/L (3.4-5.1); Sodium 133 mmol/L (137-145); Total Protein 7.4 g/dL (6.3-8.2)
--- NOTE | 2024-12-15 17:10 | EKG_ITS ---
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
--- NOTE | 2024-12-15 17:17 | ED_ITS ---
<Statement entered by Sher Garcia, - 12/16/24 00:18> Dr. Garcia: I was immediately available in the department for consultation. I did not actually see the patient. HPI - Abdominal Pain General Chief Complaint: Abdominal Pain Stated Complaint: WIC; Fever 102.2, UTI Time Seen by Provider: 12/15/24 17:16 Source: patient Mode of arrival: Ambulatory History of Present Illness HPI narrative: 64-year-old female presents with urinary symptoms and pain that has been going on now for 1 month. She was initially evaluated at the walk-in clinic but due to her findings of fever and positive urine she was referred to the emergency department for further workup. 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 She is endorsing right-sided flank pain traveling down her side along the groin. She is denying any injury or fall, no history of any kidney stones. She did not actually measure her temperature at home but the walk-in clinic reported 102.2. She states her urine looks like foamy pee she described it as achy and burning during urination. She is denying any abdominal pain, no nausea, vomiting, but does endorse feeling fatigued over the last week or so. No body aches, chills or joint pains. Only significant medical history is left hip ORIF with no sequelae although she does take meloxicam daily. All other systems reviewed and are negative. Related Data Home Medications Medication Instructions Recorded Confirmed Testosterone compounded Cream See Rx Instructions .Route .COMPLEX 11/24/23 10/03/24 levothyroxine 75 mcg tablet 75 mcg PO DAILY 10/03/24 Previous Rx's Medication Instructions Recorded oxybutynin chloride 5 mg 5 mg PO DAILY #90 tabs 09/22/23 tablet,extended release 24 hr estradiol 0.0375 mg/24 hr 1 patch transdermal 2XW #24 ea 11/24/23 semiweekly transdermal patch (Joellen) estradiol 10 mcg vaginal tablet 10 mcg vaginal DAILY 2 weeks #44 11/24/23 tabs progesterone micronized 100 mg 100 mg PO QAM #90 caps 11/24/23 capsule baclofen 5 mg tablet 10 mg (2 x 5 mg) PO BEDTIME PRN 04/16/24 muscle spasm #180 tabs albuterol sulfate 90 mcg/actuation See Rx Instructions .Route 04/06/24 aerosol inhaler .COMPLEX #6.7 grams insulin syr/ndl U100 half daphne 0.3 #25 ea 07/06/24 mL 29 gauge x 1/2 eszopiclone 3 mg tablet (Lunesta) 3 mg PO BEDTIME #30 tabs 10/03/24 semaglutide 0.25 mg or 0.5 mg (2 0.5 mg (0.736 mL) SUBCUT QWEEK #9 10/03/24 mg/3 mL) subcutaneous pen injector mL meloxicam 15 mg tablet 15 mg PO DAILY pain #90 tabs 10/11/24 pantoprazole 20 mg tablet,delayed 20 mg PO DAILY #90 tabs 10/11/24 release duloxetine 60 mg capsule,delayed See Rx Instructions .Route 10/12/24 release .COMPLEX #90 caps cefpodoxime 200 mg tablet 200 mg PO BID #20 tabs 12/15/24 Allergies Allergy/AdvReac Type Severity Reaction Status Date / Time Sulfa (Sulfonamide Allergy Mild RASH Verified 10/03/24 09:32 Antibiotics) clindamycin AdvReac Intermediate SEVERE Verified 10/03/24 09:32 DIARRHEA Review of Systems Review of Systems Narrative: All other systems reviewed and are negative. Patient History Medical History Insomnia Overweight (BMI 25.0-29.9) Chronic diarrhea Gastroesophageal reflux disease Borderline hypertension Herniated nucleus pulposus, L5-S1, left Lumbar pain with radiation down left leg Pelvic pain Low back pain Fibromyalgia Degenerative joint disease (DJD) of hip Polyarthralgia Preventative health care Chronic pain Family history of breast cancer Left hip pain Surgical History S/P total hip arthroplasty Status post laparoscopy (1988) History of tonsillectomy History of third molar tooth extraction Social History marital status: unmarried,single household members: none lives independently: Yes occupational status: employed Smoking Status: Former smoker Tobacco: How many years used: 10 alcohol intake: never substance use type: does not use Smoking Status: Former smoker Exam Initial Vital Signs Initial Vital Signs: Vital Signs Temperature 98.5 F 12/15/24 15:33 Pulse Rate 81 12/15/24 15:33 Respiratory Rate 20 12/15/24 15:33 Blood Pressure 120/64 12/15/24 15:33 Pulse Oximetry 97 12/15/24 15:33 Oxygen Delivery Method Room Air 12/15/24 15:33 Reviewed and are normal. Const General: cooperative, healthy appearing, well developed, well groomed and No acute distress Other: Ambulatory, pleasantly conversing. Eyes General: Yes appearance normal, both eyes and all related structures Neck Neck: normal visual inspection, full ROM and supple Lymphatic: No lymphadenopathy Resp Effort & Inspection: normal respiratory effort and able to speak in complete sentences Auscultation: clear to auscultation bilaterally, no rales, no rhonchi and no wheezes Cardio Rate: regular rate Rhythm: regular rhythm GI Inspection: normal to inspection and non-distended Palpation: soft, no hepatosplenomegaly and No guarding Percussion: normal to percussion Auscultation: normal bowel sounds Other: Right-sided CVA tenderness mild to moderate, tenderness along the right side around to the left inguinal area. There is no swelling, no mass, no rebound, no discoloration. No adenopathy. Back/Spine/Pelvis Back: normal to inspection Skin General: no rashes or lesions noted, elasticity normal and turgor normal Course Orders Ordered: ED Orders 12/15/24 15:42 EKG-12 Lead Stat 12/15/24 15:43 Complete Blood Count AUTO DIFF Stat Comprehensive Metabolic Panel Stat Lipase Stat 12/15/24 17:41 CT abdomen pelvis w con Stat Discontinued Medications Ceftriaxone Sodium 2,000 mg/ (Sodium Chloride) 100 mls @ 200 mls/hr IV NOW ONE Stop: 12/15/24 18:43 Last Infusion: 12/15/24 19:38 Dose: Infused Documented By: Admin: 12/15/24 19:03 Dose: 200 mls/hr Documented By: SANCHO Ketorolac Tromethamine (Ketorolac 30 Mg/Ml Vial) 30 mg IV NOW ONE Stop: 12/15/24 18:43 Last Admin: 12/15/24 18:50 Dose: 30 mg Documented By: SACNHO Ondansetron HCl (Ondansetron 4 Mg/2 Ml Inj) 4 mg IV NOW PRN PRN Reason: Nausea And Vomiting Ondansetron HCl (Ondansetron 4 Mg Odt) 4 mg PO NOW PRN PRN Reason: Nausea And Vomiting Vital Signs Vital signs: Vital Signs - 8 hr 12/15/24 15:33 12/15/24 19:16 Temperature 98.5 F 98 F Pulse Rate 81 80 Respiratory Rate 20 16 Blood Pressure 120/64 113/60 Pulse Oximetry 97 98 Oxygen Delivery Method Room Air MDM - Abdominal Pain Lab Data Lab results narrative: Slight elevation in her white count 13.6, chemistry otherwise normal. 12/15/24 15:43 12/15/24 15:43 Labs: Lab Results 12/15/24 Range/Units 15:43 WBC 13.6 H (4.5-11.0) X10^3/uL RBC 4.69 (4.0-5.2) X10^6/uL Hgb 13.3 (12.0-16.0) g/dL Hct 39.0 (36-46) % MCV 83.0 (80-100) fL MCH 28.3 (26-34) PG MCHC 34.1 (30-36) % RDW 13.9 (11.6-14.8) % Plt Count 277 (150-400) X10^3/uL Neut % (Auto) 86.4 H (50-75) % Lymph % (Auto) 5.3 L (25-40) % [place] % (Auto) 7.7 (3-14) % Eos % (Auto) 0.1 L (2-4) % Baso % (Auto) 0.5 (0-2) % Neut # (Auto) 44652 H (0234-9914) /uL Lymph # (Auto) 700 L (8320-9382) /uL [place] # (Auto) 1000 H (0-900) /uL Eos # (Auto) 0 (0-450) /uL Baso # (Auto) 100 (0-100) /uL Sodium 133 L (137-145) mmol/L Potassium 3.7 (3.4-5.1) mmol/L Chloride 101 (98-107) mmol/L Carbon Dioxide 22 (22-32) mmol/L BUN 15 (7-17) mg/dL Creatinine 0.79 (0.52-1.04) mg/dL Estimated GFR > 60 (>60) mL/min BUN/Creatinine Ratio 19.0 (6-22) Glucose 112 H (80-110) mg/dL Calcium 9.1 (8.4-10.2) mg/dL Total Bilirubin 1.5 H (0.2-1.3) mg/dL AST 27 (14-36) IU/L ALT 21 (<35) IU/L Alkaline Phosphatase 69 (38-126) U/L Total Protein 7.4 (6.3-8.2) g/dL Albumin 4.4 (3.5-5.0) g/dL Globulin 3.0 (1.7-4.1) g/dL Albumin/Globulin Ratio 1.5 (1.0-2.8) Lipase 74 (23-300) U/L Imaging Data CT scan - abdomen/pelvis: My Impression: Deferred to radiologist's interpretation below. Radiologist's Impression: PROCEDURE: CT ABDOMEN PELVIS W CON INDICATIONS: right flank pain and RLQ abd pain, +UTI, blood in urine TECHNIQUE: After the administration of intravenous contrast, axial sections acquired from the lung bases to the pubic symphysis. Coronal and sagittal reformats were performed. For radiation dose reduction, the following was used: automated exposure control, adjustment of mA and/or kV according to patient size. COMPARISON: None. FINDINGS: Image quality: Diagnostic. Lower Chest: No significant findings. ABDOMEN: Liver: No solid mass. Gallbladder: No radiopaque gallstones or wall thickening. Biliary ducts: No biliary dilation. Pancreas: No ductal dilation. Spleen: Size is within normal limits. Adrenal Glands: No adrenal nodules. Kidneys and Ureters: There is mild bilateral perinephric and periureteral fat stranding. No perinephric fluid collection. No hydronephrosis or hydroureter. No solid mass. No complex renal cystic lesion which requires follow up. Stomach and Bowel: There is no bowel obstruction. No gastric or small bowel wall thickening. Appendix is visualized in right lower quadrant and is within normal limits. Mild fecal stasis in the colon is seen. There is suggestion of distal descending colon and sigmoid colon wall thickening with narrowing of the lumen and sigmoid diverticulosis. No focal area of inflammatory changes are seen sigmoid colon or descending colon. No abscess collection. Peritoneum: No abnormal intraperitoneal fluid. No free air. Ventral Wall: Small umbilical hernia is seen containing fat only. Abdominal Nodes: No retroperitoneal or mesenteric adenopathy by size criteria. Vessels: Aorta and inferior vena cava are normal in size. PELVIS: Pelvic Organs: Unremarkable. Bladder: No bladder wall thickening, accounting for underdistention. Pelvic Nodes: No enlarged lymph nodes. Miscellaneous: No inguinal hernias are seen. Bones: No aggressive osseous abnormality. Prior left total hip arthroplasty is seen. IMPRESSION: 1. No obstructing renal stones or hydronephrosis. No hydroureter. Mild bilateral perinephric fat stranding and periureteral fat stranding which may represent low-grade pyelonephritis suggest urological correlation. No gross bladder wall abnormalities. No calcified bladder stones. 2. There is no bowel obstruction. No gastric or small bowel wall thickening. Normal appendix. 3. Suggestion of low-grade distal descending colon and sigmoid colitis with wall thickening and edema. No focal area of acute diverticulitis. No abscess collection. No free fluid or free air. Dictated by: Edilberto Hoyt M.D. on 12/15/2024 at 18:25 Approved by: Edilberto Hoyt M.D. on 12/15/2024 at 18:28 ECG Data Interpretation: Normal sinus rhythm ventricular rate of 82 beats per minute, no ST segment changes, no P or T-wave abnormalities, no ectopy. MDM Narrative Medical decision making narrative: 64-year-old female with symptoms gradually worsening over 1 month. , she had a fever at the walk-in clinic this morning although she did not endorse having any at home, she felt achy and fatigued and had urinary symptoms. Her presentation was consistent with pyelonephritis but I felt comfortable treating her as an outpatient as her pain was controlled, her white count was only 13.6 and she is very reliable and responsible. Her CT scan was consistent with an early pyelo there were no stones or obstruction or hydronephrosis. Per the radiology report there was a suggestion of low-grade distal descending colon and sigmoid colitis with wall thickening and edema however she had absolutely no discomfort on her abdominal exam except for the right inguinal region more consistent with her bladder and ureter. She was treated with Rocephin IV, Toradol IV and prescribed cefpodoxime 200 mg b.i.d. for 10 day course. This case was discussed with Dr. España prior to treatment. Patient was encouraged to push fluids, do not hold her bladder, she may do NSAIDs tomorrow otherwise she can do acetaminophen tonight, red flag warning signs were reviewed in great detail with returned to emergency room instructions given. If she develops any worsening pain, fever, any nausea or vomiting, any inability to void, any new worrisome symptoms to not hesitate and get seen right away. Discharge Plan Departure Patient Disposition: Home Clinical Impression: Pyelonephritis Instructions: DI for Kidney Infection Activity Restrictions/Additional Instructions: You have a urinary tract infection that traveled to the kidney called pyelonephritis. Your CT scan was consistent with this, there were no stones. You did receive a course of antibiotics intravenously called Rocephin, you also received Toradol which is a strong anti-inflammatory so do not take any additional NSAIDs tonight, next dose would be tomorrow morning. I would like you to hydrate, do not hold your urine, you may take acetaminophen tonight for pain, and then pickup your oral antibiotic at the pharmacy. Please do not hesitate to return to the emergency department if you develop a fever, worsening pain, no significant improvement or develop any new worrisome symptoms. Prescriptions: New cefpodoxime 200 mg tablet 200 mg PO BID Qty: 20 0RF Rx Instructions: must administer with a meal/food No Action baclofen 5 mg tablet 10 mg PO BEDTIME PRN (Reason: muscle spasm) Qty: 180 3RF Rx Instructions: Take 1-2 tabs at bedtime daily as needed for muscle spasms albuterol sulfate 90 mcg/actuation HFA aerosol inhaler See Rx Instructions .ROUTE .COMPLEX Qty: 6.7 1RF Dose Instruction: Inhale 2 puffs every 4 to 6 hours as needed for asthma Rx Instructions: Inhale 2 puffs every 4 to 6 hours as needed for asthma meloxicam 15 mg tablet 15 mg PO DAILY Qty: 90 2RF Rx Instructions: TAKE WITH FOOD pantoprazole 20 mg tablet,delayed release (DR/EC) 20 mg PO DAILY Qty: 90 3RF duloxetine 60 mg capsule,delayed release(DR/EC) See Rx Instructions .ROUTE .COMPLEX Qty: 90 1RF Dose Instruction: Take 1 capsule (60 mg) by mouth daily Rx Instructions: Take 1 capsule (60 mg) by mouth daily levothyroxine 75 mcg tablet 75 mcg PO DAILY eszopiclone [Lunesta] 3 mg tablet 3 mg PO BEDTIME Qty: 30 5RF semaglutide 0.25 mg or 0.5 mg (2 mg/3 mL) pen injector 0.5 mg SUBCUT QWEEK Qty: 9 1RF Rx Instructions: ok to compound. 1 mg/mL oxybutynin chloride 5 mg tablet extended release 24hr 5 mg PO DAILY Qty: 90 3RF Hold Instructions: Home Medication placed on hold at Doctor's office Testosterone compounded Cream See Rx Instructions .ROUTE .COMPLEX Rx Instructions: 0.3 % topical cream apply 0.1mL topically to wrist daily; progesterone micronized 100 mg capsule 100 mg PO QAM Qty: 90 3RF estradiol 10 mcg tablet 10 mcg vaginal DAILY 14 Days Qty: 44 6RF Rx Instructions: Insert 1 tab vaginally at bedtime x14 days then 2-3 times per week thereafter estradiol [Joellen] 0.0375 mg/24 hr patch semiweekly 1 patch transdermal 2XW Qty: 24 10RF Hold Instructions: Home Medication placed on hold at Doctor's office Rx Instructions: apply 1 patch for 3 days alternating with 1 patch for 4 days each week for 3 wks per 4-wk cycle (DME) insulin syr/ndl U100 half daphne 0.3 mL 29 gauge x 1/2 syringe See Rx Instructions .ROUTE .MEDSUPPLY Qty: 25 3RF Rx Instructions: As directed Referrals: Pallavi Dacosta DO [Primary Care Provider] - Stand Alone Forms: Patient Portal/API/Survey
--- NOTE | 2024-12-15 17:41 | DI.CT.S_ITS ---
PROCEDURE: CT ABDOMEN PELVIS W CON INDICATIONS: right flank pain and RLQ abd pain, +UTI, blood in urine TECHNIQUE: After the administration of intravenous contrast, axial sections acquired from the lung bases to the pubic symphysis. Coronal and sagittal reformats were performed. For radiation dose reduction, the following was used: automated exposure control, adjustment of mA and/or kV according to patient size. COMPARISON: None. FINDINGS: Image quality: Diagnostic. Lower Chest: No significant findings. ABDOMEN: Liver: No solid mass. Gallbladder: No radiopaque gallstones or wall thickening. Biliary ducts: No biliary dilation. Pancreas: No ductal dilation. Spleen: Size is within normal limits. Adrenal Glands: No adrenal nodules. Kidneys and Ureters: There is mild bilateral perinephric and periureteral fat stranding. No perinephric fluid collection. No hydronephrosis or hydroureter. No solid mass. No complex renal cystic lesion which requires follow up. Stomach and Bowel: There is no bowel obstruction. No gastric or small bowel wall thickening. Appendix is visualized in right lower quadrant and is within normal limits. Mild fecal stasis in the colon is seen. There is suggestion of distal descending colon and sigmoid colon wall thickening with narrowing of the lumen and sigmoid diverticulosis. No focal area of inflammatory changes are seen sigmoid colon or descending colon. No abscess collection. Peritoneum: No abnormal intraperitoneal fluid. No free air. Ventral Wall: Small umbilical hernia is seen containing fat only. Abdominal Nodes: No retroperitoneal or mesenteric adenopathy by size criteria. Vessels: Aorta and inferior vena cava are normal in size. PELVIS: Pelvic Organs: Unremarkable. Bladder: No bladder wall thickening, accounting for underdistention. Pelvic Nodes: No enlarged lymph nodes. Miscellaneous: No inguinal hernias are seen. Bones: No aggressive osseous abnormality. Prior left total hip arthroplasty is seen. IMPRESSION: 1. No obstructing renal stones or hydronephrosis. No hydroureter. Mild bilateral perinephric fat stranding and periureteral fat stranding which may represent low-grade pyelonephritis suggest urological correlation. No gross bladder wall abnormalities. No calcified bladder stones. 2. There is no bowel obstruction. No gastric or small bowel wall thickening. Normal appendix. 3. Suggestion of low-grade distal descending colon and sigmoid colitis with wall thickening and edema. No focal area of acute diverticulitis. No abscess collection. No free fluid or free air. Dictated by: Edilberto Hoyt M.D. on 12/15/2024 at 18:25 Approved by: Edilberto Hoyt M.D. on 12/15/2024 at 18:28
[2024-12-15] MEDS: KETOROLAC 30 MG/ML VIAL IV (18:50)
[2024-12-15] MEDS: cefTRIAXone 2,000 MG in SODIUM CHLORIDE 0.9% 100 ML 200 MG IV (19:03)
[2024-12-15 19:16] VITALS: BP 113/60; PULSE 80; RESP 16; TEMP 36.6; O2SAT 98
== END 2024-12-15 19:39 | disposition home or self-care (01) ==
PROVIDERS: Emergency Medicine; Emergency Provider Physician Assistant Medical; PCP Family Medicine
DX: N12 Tubulo-interstitial nephritis, not specified as acute or chronic (principal); I10 Essential (primary) hypertension; Z87.891 Personal history of nicotine dependence; Z79.890 Hormone replacement therapy; R30.0 Dysuria
CPT/HCPCS: 36415; 74177; 80053; 83690; 85025; 87077; 87086; 87186; 93005; 96365; 96375; 99284; 99285; J0696; J1885; Q9967

== ENCOUNTER → 2025-08-15 11:15 | Outpatient (CLI) | payer OTHER, SELFPAY ==
[2025-08-15 11:33] LABS: Appearance Urine UA CLEAR; Bilirubin Urine UA NEGATIVE (NEGATIVE); Color Urine UA YELLOW; Glucose Urine UA NEGATIVE (Negative); Ketones Urine UA NEGATIVE (NEGATIVE); Leukocyte Esterase Urine UA NEGATIVE (NEGATIVE); Nitrite Urine UA NEGATIVE (Negative); Occult Blood Urine UA TRACE-INTACT (Negative); Protein Urine UA NEGATIVE (Negative); Specific Gravity Urine UA <=1.005 (1.000-1.035); Urobilinogen Urine UA 0.2 E.U./dL (0.2)
[2025-08-15 11:42] LABS: pH Urine UA 7.0 (4.5-8.0)
[2025-08-15 11:52] LABS: Culture Indicated Urine Cult Not Indicated
== END ==
PROVIDERS: PCP Family Medicine; Referring Provider Family Medicine; Visit Provider Family Medicine
DX: N12 Tubulo-interstitial nephritis, not specified as acute or chronic (principal); Z79.890 Hormone replacement therapy; G47.00 Insomnia, unspecified; E66.3 Overweight
CPT/HCPCS: 81001

== ENCOUNTER → 2025-10-01 15:34 | Outpatient (CLI) | payer OTHER, SELFPAY ==
--- NOTE | 2025-10-01 15:36 | DI.MG.S_ITS ---
MM screening mammo BI: 10/01/2025. BI-RADS: 2 CLINICAL: 65-year old female for bilateral screening mammogram. Tyrer-Cuzick lifetime risk of 33.2%. Current reported family history of breast cancer: mother and sister. The patient had a prior left breast biopsy. PRIOR EXAMS 09/24/2022, 05/07/2016, 11/07/2015, 10/21/2015, MAMMOGRAPHY TECHNIQUE: 2D and 3D (tomosynthesis) digital mammographic views obtained, with additional images as needed for full coverage. Current study was also evaluated with a Computer Aided Detection (CAD) system. DENSITY C. The breasts are heterogeneously dense, which may obscure small masses. MAMMOGRAPHY FINDINGS Right: Benign-appearing calcifications noted on the right. There are no suspicious masses, calcifications, or other findings in the breast. Left: Biopsy markers present on the left. Benign-appearing calcifications and post-surgical changes noted on the left. There are no suspicious masses, calcifications, or other findings in the breast. IMPRESSION: * No evidence of malignancy with benign findings. RECOMMENDATIONS Bilateral * According to the Tyrer-Cuzick Risk Assessment Model, based on the information provided your patient has a greater than 20% lifetime risk for developing breast cancer. Consider supplemental screening with breast MRI and participation in a high risk screening program. * Annual screening mammography. OVERALL ASSESSMENT CATEGORY BI-RADS-2: Benign. The [employer] recommends annual screening mammography beginning at age 40 for women with average risk of breast cancer. ELECTRONICALLY SIGNED: Rush Shepard M.D. on 10/01/2025 at 10:15:26 PM PT Interpreting Station ID: [id number]
== END ==
LOC: MAMMO 15:35
PROVIDERS: PCP Family Medicine; Referring Provider Family Medicine; Visit Provider Family Medicine
DX: Z12.31 Encounter for screening mammogram for malignant neoplasm of breast (principal); R92.333 Mammographic heterogeneous density, bilateral breasts; R92.1 Mammographic calcification found on diagnostic imaging of breast; Z80.3 Family history of malignant neoplasm of breast
CPT/HCPCS: 77063; 77067